=== PATIENT | male | born 1955 | race Caucasian/White ===

== ENCOUNTER 2018-04-06 08:44 | Inpatient (IN) ==
--- NOTE | 2018-03-07 09:36 | PAT Medication Instructions ---
Medication Instructions Date of Service March 07, 2018 Home Medications Durezol 1 dose OPHTHALMIC (EYE) BID adalimumab [Humira] 1 dose SUBCUT UD amlodipine 10 mg PO QAM bisoprolol fumarate 0.5 tab PO QAM canagliflozin [Invokana] 100 mg PO QAM celecoxib 200 mg PO BID metformin2 tab PO BID multivitamin [Multiple Vitamins] 1 tab PO QPM omega 4-xox-yey-fish oil [Fish Oil] 1 cap PO BID omeprazole 20 mg PO QAM potassium gluconate 595 mg PO QAM sitagliptin [Januvia] 50 mg PO QAM timolol 1 drp OPHTHALMIC (EYE) QID valsartan-hydrochlorothiazide 1 tab PO QAM vitamin B complex 1 cap PO QAM warfarin 8 mg PO QPM Per surgeon's instructions celecoxib 200 mg PO BID Check with MD/Surgeon-instructions adalimumab [Humira] 1 dose SUBCUT UD (check with your prescriber) warfarin 8 mg PO QPM (check with your surgeon and prescriber) Hold 2 weeks prior to surgery omega 8-bkg-gla-fish oil [Fish Oil] 1 cap PO BID Hold the morning of surgery canagliflozin [Invokana] 100 mg PO QAM metformin2 tab PO BID potassium gluconate 595 mg PO QAM sitagliptin [Januvia] 50 mg PO QAM valsartan-hydrochlorothiazide 1 tab PO QAM vitamin B complex 1 cap PO QAM Take morning of surgery with a sip of water, OTHERWISE NOTHING TO EAT OR DRINK AFTER MIDNIGHT: Durezol 1 dose OPHTHALMIC (EYE) BID amlodipine 10 mg PO QAM bisoprolol fumarate 0.5 tab PO QAM omeprazole 20 mg PO QAM timolol 1 drp OPHTHALMIC (EYE) QID Take evening before surgery Durezol 1 dose OPHTHALMIC (EYE) BID metformin2 tab PO BID multivitamin [Multiple Vitamins] 1 tab PO QPM timolol 1 drp OPHTHALMIC (EYE) QID Other Notes If you have any questions please call us at [phone] or [phone] or [phone] or [phone]
[2018-03-07 10:02] LABS: Basophils # (auto) 0.05 K/uL (0-0.2); Basophils % (auto) 0.7 %; Eosinophils # (auto) 0.38 K/uL (0-0.5); Eosinophils % (auto) 5.1 %; Hematocrit (blood only) 45.8 % (42-52); Hemoglobin 14.7 g/dL (14.0-18.0); Immature Granulocytes # (auto) 0.02 K/uL (0.00-0.02); Immature Granulocytes % (auto) 0.3 %; Lymphocytes # (auto) 1.83 K/uL (1.2-3.4); Lymphocytes % (auto) 24.6 %; Mean Corpuscular Hgb Conc 32.1 g/dL (32-36); Mean Corpuscular Volume 84.8 fL (80-100); Mean Platelet Volume 11.1 fL (7.4-10.4); Monocytes # (auto) 0.67 K/uL (0.11-0.59); Neutrophils # (auto) 4.48 K/uL (1.4-6.5); Neutrophils % (auto) 60.3 %; Platelet Count 159 K/uL (130-400); RDW Coefficient of Variation 14.8 % (11.5-14.5); RDW Standard Deviation 45.5 fL (36.4-46.3); White Blood Count 7.43 K/uL (4.8-10.8)
--- NOTE | 2018-03-07 10:02 | Anesthesiology Consultation ---
Date of Service March 07, 2018 Assessment & Plan (1) Encounter for pre-operative examination: Chart Review Chart Review: Acceptable Risk for Surgery and Patient seen in Pre Admission Testing Consults Requested none Teaching & Discussion Pre-Anesthesia Teaching/Discussion Notes: Instructed NPO after midnight before surgery, except medications with 15 cc of water. Medication instructions provided according to the PAT guidelines. History Surgery Operation Date: 04/06/18 08:50 Proposed Procedures p Left Revision Total Shoulder Replacement to Reverse Total Shoulder - Neal Reinoso, Height/Weight Height: 5 ft 9 in Weight: 132 kg Allergies Allergy/AdvReac Type Severity Reaction Status Date / Time latex Allergy Mild LOCAL SKIN Verified 02/28/18 09:28 SORES adhesive AdvReac Intermediate OCCASIONALLY Verified 02/28/18 09:28 KILN PACKER PATCHES CAUSE A RASH vancomycin AdvReac Mild CARMEN Verified 02/28/18 09:28 LIKE RASH - GIVE SLOWLY Medications Home Medications Medication Instructions Recorded Confirmed Last Taken Durezol 1 dose OPHTHALMIC (EYE) BID 02/28/18 02/28/18 02/28/18 amlodipine 10 mg PO QAM 02/28/18 02/28/18 02/28/18 bisoprolol fumarate 0.5 tab PO QAM 02/28/18 02/28/18 02/28/18 canagliflozin [Invokana] 100 mg PO QAM 02/28/18 02/28/18 02/28/18 celecoxib 200 mg PO BID 02/28/18 02/28/18 02/28/18 metformin 2 tab PO BID 02/28/18 02/28/18 02/28/18 multivitamin [Multiple Vitamins] 1 tab PO QPM 02/28/18 02/28/18 02/27/18 omega 4-wpo-plq-fish oil [Fish Oil] 1 cap PO BID 02/28/18 02/28/18 02/28/18 omeprazole 20 mg PO QAM 02/28/18 02/28/18 02/28/18 potassium gluconate 595 mg PO QAM 02/28/18 02/28/18 02/28/18 sitagliptin [Januvia] 50 mg PO QAM 02/28/18 02/28/18 02/28/18 timolol 1 drp OPHTHALMIC (EYE) BID 02/28/18 03/07/18 02/28/18 valsartan-hydrochlorothiazide 1 tab PO QAM 02/28/18 02/28/18 02/28/18 vitamin B complex 1 cap PO QAM 02/28/18 02/28/18 02/28/18 warfarin 8 mg PO QPM 02/28/18 02/28/18 02/27/18 Past Medical History Medical History Acid reflux Acute anterior uveitis of left eye UVEITIS AND AUTOIMMUNE PROBLEM LEFT EYE ONLY Atrial fibrillation DX 2008/NO CARDIOVERSION Diabetes Fatty liver Hypertension Osteoarthritis Sleep apnea OXYGEN HS Past Family History Family History Mother Family history of diabetes mellitus Grandfather Family history of diabetes mellitus Grandmother Family history of diabetes mellitus Past Surgical History Surgical History History of arthroplasty of left shoulder History of arthroplasty of right knee History of revision of total knee arthroplasty R Hx of arthroscopy of left knee Hx of arthroscopy of right knee Hx of colonoscopy Hx of right knee surgery TOTAL OF 4 - HX OF INFECTION Hx of shoulder surgery LEFT PIN Hx of tonsillectomy Past Anesthesia History No Hx of Anesthesia Complications (Sensitive to anesthesia, if given what is appropriate to his weight he takes a long time to wake up. 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 Moderately active. Able to climb FOS. Denies CP or SOB. ) Review of Systems Patient denies chest pain, shortness of breath, dyspnea on exertion, reflux ( controlled with medications), cough, wheezing, palpitations. +joint pain Physical Exam Vital Signs BP: 115/71 P: 74 R: 16 T: 97.7 SPO2: 96% on RA ENMT Mouth: + dental caries and + poor dentition Thyromental Distance: > or= 3.5 Finger Breadths (4+) Mallampati Class: I Neck normal visual inspection, trachea midline and + facial hair (advised) Respiratory normal respiratory effort Auscultation: lungs clear to auscultation bilaterally Cardiovascular Rate/Rhythm: regular rate and regular rhythm Heart Sounds: no murmur Vessels: no carotid bruit Psychiatric Orientation: alert and oriented x 3 Testing Electrocardiogram Date: 03/07/18 Findings: + NSR @ (68) Chest X-Ray Date: 03/07/18 Findings: + NAD The heart is mildly enlarged. There is mild right paratracheal fullness, finding unchanged from the prior study and likely secondary to a great vessels shadow. There is no failure. There is no focal pulmonary consolidation. There are no pleural effusions. There is a linear band of atelectatic changes in the right midlung zone. Postsurgical changes involve the left shoulder. Laboratory Results 03/07/18 09:40 03/07/18 09:40 Blood Type A Positive 03/07/18 09:40 Antibody Screen NEGATIVE 03/07/18 09:40 PT 18.6 Seconds (9.0-12.0) H 03/07/18 09:40 INR 1.8 (0.9-1.1) H 03/07/18 09:40 APTT 33.7 Seconds (21.0-31.0) H 03/07/18 09:40
[2018-03-07 10:12] LABS: INR 1.8 (0.9-1.1); Partial Thromboplastin Ratio 1.3; Partial Thromboplastin Time 33.7 Seconds (21.0-31.0); Prothrombin Time 18.6 Seconds (9.0-12.0)
--- NOTE | 2018-03-07 10:45 | XRay Report ---
XR chest Pre-admission PA/Lat CLINICAL HISTORY: Preoperative chest COMPARISON STUDY: 08/26/2015 FINDINGS: The heart is mildly enlarged. There is mild right paratracheal fullness, finding unchanged from the prior study and likely secondary to a great vessels shadow. There is no failure. There is no focal pulmonary consolidation. There are no pleural effusions. There is a linear band of atelectatic changes in the right midlung zone. Postsurgical changes involve the left shoulder. IMPRESSION: No active disease in the chest. Electronically signed by: Janusz Laws M.D. 03/07/2018 10:44 AM
[2018-03-07 10:52] LABS: BUN Creatinine Ratio 17.5 (10-20); Calcium 9.3 mg/dl (8.5-10.1); Creatinine Clr Calc Pharmacy 135.7 ml/min; Est GFR (African American) 113.5; Est GFR (Non-African American) 97.9
--- NOTE | 2018-04-06 06:31 | History & Physical Report ---
Date of Service April 06, 2018 Assessment & Plan (1) Anterior dislocation of left shoulder: We will proceed with a removal of the total shoulder arthroplasty and conversion to a reverse shoulder prosthesis. Postoperatively he will be kept in the hospital for postop medical management. He plans to go to outpatient physical therapy in [place]. 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 He did well for years and never had a redislocation. Unfortunately he developed bad arthritis in the shoulder. I did a left total shoulder arthroplasty on him and was able to elevate the soft tissues off the trans-planted coracoid. I was able to get a good repair of the subscapularis at the time. He initially did well and was happy with his progress. Unfortunately 2 years after the surgery he began having increased pain and weakness of the left shoulder. X-rays in the office demonstrated anterior dislocation of the left shoulder prosthesis. After extensive discussions in the office he elected to proceed with a conversion to a reverse shoulder arthroplasty. Allergies Allergy/AdvReac Type Severity Reaction Status Date / Time latex Allergy Mild LOCAL SKIN Verified 02/28/18 09:28 SORES adhesive AdvReac Intermediate OCCASIONALLY Verified 02/28/18 09:28 EVENTS DIRECTOR PATCHES CAUSE A RASH vancomycin AdvReac Mild CARMEN Verified 02/28/18 09:28 LIKE RASH - GIVE SLOWLY Home Medications Home Medications Medication Instructions Recorded Confirmed Type Durezol 1 dose OPHTHALMIC (EYE) BID 02/28/18 02/28/18 History amlodipine 10 mg PO QAM 02/28/18 02/28/18 History bisoprolol fumarate 0.5 tab PO QAM 02/28/18 02/28/18 History canagliflozin [Invokana] 100 mg PO QAM 02/28/18 02/28/18 History celecoxib 200 mg PO BID 02/28/18 02/28/18 History metformin 2 tab PO BID 02/28/18 02/28/18 History multivitamin [Multiple Vitamins] 1 tab PO QPM 02/28/18 02/28/18 History omega 2-osk-jim-fish oil [Fish Oil] 1 cap PO BID 02/28/18 02/28/18 History omeprazole 20 mg PO QAM 02/28/18 02/28/18 History potassium gluconate 595 mg PO QAM 02/28/18 02/28/18 History sitagliptin [Januvia] 50 mg PO QAM 02/28/18 02/28/18 History timolol 1 drp OPHTHALMIC (EYE) BID 02/28/18 03/07/18 History valsartan-hydrochlorothiazide 1 tab PO QAM 02/28/18 02/28/18 History vitamin B complex 1 cap PO QAM 02/28/18 02/28/18 History warfarin 8 mg PO QPM 02/28/18 02/28/18 History Past Med/Surg History Medical History Acid reflux Acute anterior uveitis of left eye UVEITIS AND AUTOIMMUNE PROBLEM LEFT EYE ONLY Atrial fibrillation DX 2008/NO CARDIOVERSION Diabetes Fatty liver Hypertension Osteoarthritis Sleep apnea OXYGEN HS Surgical History History of arthroplasty of left shoulder History of arthroplasty of right knee History of revision of total knee arthroplasty R Hx of arthroscopy of left knee Hx of arthroscopy of right knee Hx of colonoscopy Hx of right knee surgery TOTAL OF 4 - HX OF INFECTION Hx of shoulder surgery LEFT PIN Hx of tonsillectomy Family History Mother Family history of diabetes mellitus Grandfather Family history of diabetes mellitus Grandmother Family history of diabetes mellitus Social History Current Living Situation: Family Other Information That Helps Us Care for You: No Feels Safe at Home: Yes Smoking Status: Former smoker Tobacco Type: cigarettes Cigarettes per Day: 1 ppd x 7 years Do You Dip or Chew Tobacco: No Smoking End Date: QUIT 30 YRS AGO Hx Alcohol Use: Yes Alcohol type: beer Alcohol Intake Frequency: holidays/ special occasions only Hx Substance Use: No Beliefs That Will Affect Care: None Preferred Language: Yoruba Communication Ability: Effective Residential Monitor Required: No Review of Systems All systems reviewed & are unremarkable except as noted in HPI & below Physical Exam 2 Constitutional: WD/WN, vitals as above Eyes: PERRL, conjunctivae normal, anicteric sclerae ENMT: external ear and nose normal, oropharynx normal Neck: trachea midline, no thyromegaly Respiratory: normal respiratory effort Cardiovascular: RRR, no murmur, no edema Gastrointestinal (Abdomen): normal bowel sounds, soft, nontender, no hepatosplenomegaly Musculoskeletal: Physical examination of the left shoulder reveals decreased range of motion and significant weakness. There is tenderness palpation along the anterior glenohumeral joint line. The right upper extremity is neurovascularly intact. Psychiatric: A+Ox3, euthymic affect Results & Data Diagnostic Findings X-rays of the left shoulder show an anterior dislocation to a left total shoulder arthroplasty. I do not see any signs of loosening of the components and the components appear to be the appropriate size.
[~2018-04-06 08:44] MED LIST: ACETAMINOPHEN 500 MG TAB PO SCH; CEFAZOLIN 2000MG 2,000 MG/15 ML SYR IV SCH; CEFAZOLIN 3,000 MG in DEXTROSE 5% 50 ML IV SCH; FAMOTIDINE 20 MG TAB PO SCH; GABAPENTIN 300 MG x 2 PO SCH; LR 15ML/HR IV SCH; LR 60ML/HR IV SCH; ROPIVACAINE 0.5% 5 MG/ML 30 ML VIAL ONE; ROPIVACAINE 0.5% HCL/PF 150 MG, BUPIVACAINE 0.5% MPF 30 ML, EPINEPHrine 30MG/30ML (OR U... INFIL SCH; TRANEXAMIC ACID 1,000 MG **IV Intra-op IV SCH; TRANEXAMIC ACID 1,000 MG **IV Pre-op IV SCH
[2018-04-06] MEDS ORDERED: MIDAZOLAM HCL 1 MG/ML 2ML VIAL ONE (09:19)
[2018-04-06] MEDS ORDERED: KETAMINE HCL INJ 50 MG/ML 10 ML VIAL ONE (09:20)
[2018-04-06 09:47] LABS: INR 1.2 (0.9-1.1); Partial Thromboplastin Ratio 1.1; Partial Thromboplastin Time 28.5 Seconds (21.0-31.0); Prothrombin Time 11.6 Seconds (9.0-12.0)
--- NOTE | 2018-04-06 10:39 | History & Physical Bridge Note ---
Date of Service April 06, 2018 History & Physical Bridge Note I have examined the patient, reviewed the History & Physical and in the interval since the performance of the History & Physical I have noted the following changes of clinical significance: no changes noted
[2018-04-06] MEDS ORDERED: ORTHO JOINT ANESTHETIC ONE (11:00)
[2018-04-06] MEDS ORDERED: POVIDONE-IODINE OP SOLN 30 ML BTL ONE (11:01)
[2018-04-06] MEDS ORDERED: HYDROmorphone INJ 1 MG/ML SYRINGE IV PRN (12:27)
[2018-04-06] MEDS ORDERED: PROMETHAZINE HCL 12.5 MG in SODIUM CHLORIDE 0.9% 50 ML IV PRN (12:27)
[2018-04-06] MEDS ORDERED: ePHEDrine sulfate 50 MG/ML AMP IV PRN (12:27)
[2018-04-06] MEDS ORDERED: ONDANSETRON INJ 2 MG/ML 2 ML VIAL IV PRN ×2 (12:27→16:04)
[2018-04-06] MEDS ORDERED: FLUMAZENIL 0.1 MG/1 ML 10 ML VIAL IV PRN (12:27)
[2018-04-06] MEDS ORDERED: ATROPINE SULFATE 0.1 MG/ML 5ML SYR IV PRN (12:27)
[2018-04-06] MEDS ORDERED: NALOXONE HCL 0.4 MG/1 ML VIAL/CARP IV PRN ×2 (12:27→16:04)
[2018-04-06] MEDS ORDERED: LABETALOL HCL IV 5 MG/ML 20ML IV PRN (12:27)
[2018-04-06] MEDS ORDERED: ONDANSETRON INJ 2 MG/ML 2 ML VIAL ONE (14:08)
[2018-04-06] MEDS ORDERED: LIDOCAINE HCL 2% 2 ML VIAL/AMP(20MG/ML) INFIL ONE (14:08)
[2018-04-06] MEDS ORDERED: GLYCOPYRROLATE 0.2 MG/ML VIAL ONE (14:08)
[2018-04-06] MEDS ORDERED: SUCCINYLCHOLINE 100MG/5ML SYR ONE (14:08)
[2018-04-06] MEDS ORDERED: ePHEDrine sulfate 50 MG/ML SYR ONE (14:08)
[2018-04-06] MEDS ORDERED: PROPOFOL IV EMULSION 10 MG/ML 20 ML VIAL IV ONE (14:08)
[2018-04-06] MEDS ORDERED: NEOSTIGMINE METHYLSULFATE 5 MG/5 ML SYR ONE (14:08)
[2018-04-06] MEDS ORDERED: ROCURONIUM BROMIDE 10 MG/ML 5 ML VIAL ONE (14:08)
[2018-04-06] MEDS ORDERED: DEXAMETHASONE SOD INJ 4 MG/ML VIAL ONE (14:08)
--- NOTE | 2018-04-06 14:38 | Operative Report ---
Post Operative Report Date of Surgery April 06, 2018 Pre & Post Diagnosis Operation Date: 04/06/18 11:30 Pre-Op Diagnosis: Rotator Cuff Tear S/P Total Shoulder Replacement Post-Op Diagnosis: Rotator Cuff Tear S/P Total Shoulder Replacement Procedure Operation Date: 04/06/18 11:30 Actual Procedures p Left Revision Total Shoulder Replacement to Reverse Total Shoulder(Left) - Neal Reinoso DO Surgeon Neal Reinoso DO Surface Grinder Rufus Novak PAC Estimated Blood Loss 250 Findings Consistent with Post-Op Diagnosis Specimens None Complications none Disposition Disposition: Recovery Room Indications Robbi is a pleasant 62-year-old male who has a history of a [place] procedure to his left shoulder in the 1970s. Unfortunately he went on to develop bad arthritis in the left shoulder. He had very minimal movement. I did a left total shoulder arthroplasty on him in 2015. Initially he did well. Unfortunately he came to my office several months ago with sudden pain and loss of motion of the shoulder. X-rays showed anterior dislocation. After failing a brief course of conservative treatment he elected to undergo a conversion to a reverse shoulder arthroplasty. Description of Procedure Implants used: I removed a size 50 humeral head, a size 11 humeral stem, and a cemented size medium glenoid I used a Biomet Comprehensive reverse total shoulder arthroplasty system with a size 12 press fit mini humeral stem, a standard humeral tray and a +3 retentive humeral bearing, a 28 mm baseplate with a 6.5 mm central screw and superior and inferior locking screws, and a size 41 eccentric glenosphere. The patient arrived at [facility] for the above procedure. There were seen in the preoperative holding area and the operative extremity was identified and signed. They were given a preoperative antibiotic and an interscalene nerve block. They were taken back to the operating room, laid on table in supine position, and put under general anesthesia. They were then put into the beachchair position. The shoulder was then prepped and draped in sterile fashion. A timeout was done and the patient in the operative extremity was properly identified. The old deltopectoral approach was used. Dissection was taken down through the fascia in the deltopectoral interval was identified. The exposure was a little bit difficult because the conjoined tendons had been moved from the prior Ashlyn procedure. The anterior shoulder was exposed. The humeral head was removed. The glenoid was then exposed. Time was spent doing a complete circumferential capsular labral release. The glenoid was removed in piecemeal fashion. A trephine reamer was then used to remove the central boss. A guidepin was placed for a 28 mm standard baseplate in the center of the hole from the boss. A 28 mm baseplate was then reamed. The final baseplate was then impacted into place. A single central screw was placed followed by superior and inferior locking screws. I was able to get excellent purchase of the baseplate. A 41 mm standard eccentric glenoid sphere was then impacted into place. The proximal humerus was then exposed. I was unable to reduce a humeral tray with the already implanted humeral stem. The humeral stem had to be removed. Osteotomes were used to remove the humeral stem. The humeral stem was removed rather easily. Sequential reaming and then sequential broaching up to a size 12 broach was done. A calcar reamer was used to further increase the depth of the size 12 broach. A +3 retentive bearing seem to be the best fit and give the most stability. I was able to put the arm through full range of motion and felt stable. The trials were then removed and the final size 12 mini press-fit stem was then impacted into place. A +3 retentive bearing was then snapped onto the humeral tray and the ring lock mechanism was engaged. The humeral tray was then impacted onto the humeral stem. The shoulder was reduced both through full range of motion felt to be stable. The wound was then irrigated. Hemostasis was obtained. The axillary nerve was palpated. The shoulder was then irrigated with Betadine solution for 3 minutes. The Betadine was removed. The surgical site was dry. The skin was then closed with 2-0 Vicryl 3-0V lock suture and ag. He was then placed in a soft dressing and a regular arm sling. He was then extubated and transferred to [facility]. He was taken to the post anesthesia care unit in stable condition. He tolerated the procedure well. I attest to the content of the Intraoperative Record and any orders documented therein. Any exceptions are noted below.
--- NOTE | 2018-04-06 15:32 | Anesthesiology Progress Note ---
Date of Service April 06, 2018 Anesthesia Post Procedure Vital Signs Vital Signs: Temp Pulse Pulse Resp BP Pulse Ox 04/06/18 15:25 87 18 142/81 H 93 04/06/18 15:15 85 18 115/68 95 04/06/18 15:05 84 16 139/83 92 04/06/18 14:55 36.4 C L 85 20 151/78 H 92 04/06/18 10:04 36.7 C 85 20 133/79 92 Notes Mental Status: alert / awake / arousable Patient Amnestic to Procedure: Yes Nausea / Vomiting: adequately controlled Pain: adequately controlled Airway Patency, RR, SpO2: stable & adequate BP & HR: stable & adequate Hydration State: stable & adequate Anesthetic Complications: no major complications apparent
--- NOTE | 2018-04-06 15:34 | XRay Report ---
XR shoulder LT min 2V routine HISTORY: 62 years-old Male Post shoulder surgery left shoulder total joint arthroplasty. History of degenerative joint disease. COMPARISON: Left shoulder radiographs 01/09/2018 TECHNIQUE: 2 views of the left shoulder FINDINGS: Reverse left shoulder total joint arthroplasty demonstrates satisfactory alignment. Overlying skin st aples are noted along with expected postsurgical soft tissue swelling and deep tissue air. No acute f racture or retained foreign body identified. Heart appears enlarged. Lungs are hypoinflated. Left lung base opacities suggest atelectasis. IMPRESSION: Reverse left shoulder total joint arthroplasty with satisfactory alignment. The above report was generated using voice recognition software. It may contain grammatical, syntax o r spelling errors. Electronically signed by: Giacomo Greenfield M.D. 04/06/2018 3:32 PM
[2018-04-06] MEDS ORDERED: POLYETHYLENE (MIRALAX) 17 GM PACK PO PRN (16:04)
[2018-04-06] MEDS ORDERED: OXYCODONE HCL IR 5 MG TAB (IMMEDIATE RELEASE) PO PRN (16:04)
[2018-04-06] MEDS ORDERED: MAGNESIUM HYDROXIDE SUSP 30 ML UDC PO PRN (16:04)
[2018-04-06] MEDS ORDERED: MoRPHine SULFATE 2 MG/ML CARP IV PRN (16:04)
[2018-04-06] MEDS ORDERED: METOCLOPRAMIDE HCL INJ 5 MG/ML 2 ML VIAL IV PRN (16:04)
[2018-04-06] MEDS ORDERED: BISACODYL 10 MG SUPP PR PRN (16:04)
[2018-04-06] MEDS: POTASSIUM CHLORIDE 10 MEQ in SODIUM CHLORIDE 0.9% 1000ML 1,000 ML IV SCH (16:38)
[2018-04-06] MEDS: ACETAMINOPHEN 500 MG TAB PO SCH ×2 (16:39→22:20)
[2018-04-06] MEDS: KETOROLAC TROMETHAMINE 15 MG/ML VIAL IV SCH ×2 (16:39→22:19)
[2018-04-06] MEDS: CEFAZOLIN 2000MG 2,000 MG/15 ML SYR IV SCH (17:31)
[2018-04-06] MEDS ORDERED: PHARMACY GLYCEMIC MGMT CONSULT PRN (18:48)
[2018-04-06] MEDS ORDERED: GLUCAGON FOR INJ 1 MG VIAL SQ PRN (18:58)
[2018-04-06] MEDS ORDERED: GLUCOSE 40% GEL 15 GM TUBE PO PRN (18:58)
[2018-04-06] MEDS ORDERED: DEXTROSE 50% 50 ML SYRINGE IV PRN (18:58)
[2018-04-06] MEDS ORDERED: GLUCOSE 10 TABS/TUBE PO PRN (18:58)
[2018-04-06] MEDS ORDERED: CARBOHYDRATES FOR HYPOGLYCEMIA PO PRN (18:58)
--- NOTE | 2018-04-06 19:11 | Pharmacy Report ---
Glycemic Control Consultation - Date of Service April 06, 2018 - Scope Scope: Glycemic Pharmacist consulted by Dr Reinoso on 04/06 for glycemic control and to write orders per [facility] inpatient glycemic control protocol - Objective Weight: 128.4 kg Accuchecks BSG (last 24hrs): 04/06/18 04/06/18 04/06/18 09:49 15:02 17:30 POC Glucose 149 H 164 H 155 H - Recent Pertinent Medications Outpatient Anti-diabetic Regimen: * Invokana 100 mg qAM * Metformin ER 1 gm BID * Januvia 50 mg daily * A1c = 7.3 % 09/26/15 Risk Factors for Insulin Resistance: * Steroids: Decadron 4 mg in the periarticular, Decadron 8 mg IV intraop * Recent Surgery: POD 0 s/p shoulder surgery * Diet: type 2 diabetes - Assessment & Plan Assessment & Plan: ASSESSMENT: * 62 y/o male admitted for shoulder surgery today. He has a history of type 2 diabetes, managed on 3 oral agents. Recent outpatient control is unknown as the last A1c available is from 2 years ago. * Pt is maintained on oral antidiabetic agents as an outpatient * Oral agents are not recommended for inpatient use d/t drug interactions, changing PO intake, and difficulty titrating for acute hyper/hypoglycemia. ADA recommends re-initiating outpatient oral agents 1-2 days prior to discharge if/ when appropriate if they were held on admission. * Will hold oral agents for admission and utilize SQ basal bolus insulin regimen which is the recommended regimen for inpatient glycemic control. * Will initiate weight based insulin dosing for insulin michael patient and titrate based on BSG trends. * Dosing will initially be more aggressive b/c of periop steroids PLAN FOR INPATIENT GLYCEMIC CONTROL: * Holding outpatient oral diabetes medications - can resume POD 1 or 2, as long as patient meets criteria * Basal insulin * Lantus 25 units x 1 now (0.2 units/kg) * Further basal dosing tomorrow dependent on BSGs and/or if oral agents can be resumed * Bolus insulin * NovoLog per scale ACHS + 0200 check in case BSGs significantly elevated s/p steroids * Goal Range: Low 110 mg/dL - High 140 mg/dL * Correction Factor: 15 mg/dL/unit * Nutritional / Prandial insulin per carb ratio of 1 unit per 4 grams CHO consumed * A1c w/ AM labs to guide outpatient recommendations * Please note that the plan above was derived based on current level of insulin resistance and hospital stress. These recommendations are appropriate for inpatient admission only. Plan of care upon discharge will need to be reassessed to avoid potential outpatient hypo/hyperglycemia. Thank you.
[2018-04-06] MEDS ORDERED: LANTUS PER UNIT CHARGE SQ ONE (19:15)
[2018-04-06] MEDS: TIMOLOL MALEATE 0.5% OP SOLN 5 ML BTL OP SCH (20:45)
[2018-04-06] MEDS: INSULIN ASPART 100 UNITS/ML 3 ML PEN SC SCH (20:55)
[2018-04-06] MEDS ORDERED: SENNA 8.6 MG TAB PO SCH (21:00)
[2018-04-06] MEDS ORDERED: DOCUSATE SODIUM 100 MG CAP PO SCH (21:00)
[2018-04-06] MEDS ORDERED: MULTIVITAMIN TAB PO SCH (21:00)
[2018-04-06] MEDS ORDERED: WARFARIN SOD 2 MG TAB PO SCH (21:00)
[2018-04-06] MEDS ORDERED: WARFARIN SOD 6 MG TAB PO SCH (21:00)
[2018-04-07] MEDS ORDERED: INSULIN ASPART 100 UNITS/ML 3 ML PEN SC ONE (02:00)
[2018-04-07] MEDS: CEFAZOLIN 2000MG 2,000 MG/15 ML SYR IV SCH (02:28)
[2018-04-07] MEDS: POTASSIUM CHLORIDE 10 MEQ in SODIUM CHLORIDE 0.9% 1000ML 1,000 ML IV SCH (02:29)
[2018-04-07] MEDS: ACETAMINOPHEN 500 MG TAB PO SCH (05:01)
[2018-04-07] MEDS: KETOROLAC TROMETHAMINE 15 MG/ML VIAL IV SCH (05:10)
[2018-04-07 06:09] LABS: Basophils # (auto) 0.02 K/uL (0-0.2); Basophils % (auto) 0.2 %; Eosinophils # (auto) 0.01 K/uL (0-0.5); Eosinophils % (auto) 0.1 %; Hemoglobin 12.7 g/dL (14.0-18.0); Immature Granulocytes # (auto) 0.06 K/uL (0.00-0.02); Immature Granulocytes % (auto) 0.5 %; Lymphocytes # (auto) 1.54 K/uL (1.2-3.4); Lymphocytes % (auto) 11.6 %; Mean Corpuscular Hgb Conc 31.8 g/dL (32-36); Mean Corpuscular Volume 85.8 fL (80-100); Mean Platelet Volume 10.6 fL (7.4-10.4); Neutrophils % (auto) 78.6 %; Platelet Count 182 K/uL (130-400); RDW Coefficient of Variation 14.7 % (11.5-14.5); RDW Standard Deviation 45.7 fL (36.4-46.3); Red Blood Count 4.66 M/uL (4.7-6.1); White Blood Count 13.33 K/uL (4.8-10.8)
[2018-04-07 06:45] LABS: BUN Creatinine Ratio 22.1 (10-20); Creatinine Clr Calc Pharmacy 122.5 ml/min; Est GFR (African American) 109.5; Est GFR (Non-African American) 94.5
[2018-04-07 07:02] LABS: Estimated Average Glucose 166 mg/dl
--- NOTE | 2018-04-07 07:58 | Orthopedic Progress Note ---
Date of Service April 07, 2018 Assessment & Plan (1) Anterior dislocation of left shoulder: Overall he is doing very well. He will be seen by physical therapy today for hand, wrist, elbow, and pendulum exercises. He will be in a sling for total 3 weeks. He can be discharged home today with outpatient physical therapy. He can follow-up with orthopedics in 2 weeks. Present on Admission?: Yes Subjective Robbi was seen and examined at bedside this morning. Overall is doing very well. He does not have too much pain in the left shoulder. He was able to sleep last night and has no complaints. Physical Exam 2 Vital Signs (Past 24 Hours): Last Vital Signs Temp 36.5 C 04/07/18 07:46 Pulse 71 04/07/18 07:46 Resp 18 04/07/18 07:46 BP 156/81 H 04/07/18 07:46 Pulse Ox 92 04/07/18 07:46 Musculoskeletal: On physical examination of the left shoulder, the dressing is clean and dry. He is wearing a sling as instructed. His radial median and ulnar nerves are all checked and intact his wrist. His axillary nerve was not checked yet. Results & Data Laboratory Results H & H 03/07/18 04/07/18 Range/Units 09:40 05:04 Hgb 14.7 12.7 L (14.0-18.0) g/dL Hct 45.8 40.0 L (42-52) % Coagulation 03/07/18 04/06/18 Range/Units 09:40 09:32 INR 1.8 H 1.2 H (0.9-1.1) Diagnostic Findings X-rays postoperatively of the left shoulder show the prosthesis to be in anatomic alignment without any evidence of fracture, dislocation, or loosening.
--- NOTE | 2018-04-07 07:59 | Discharge Summary ---
Date of Service April 07, 2018 Admission HPI Per Admitting Provider Robbi is a pleasant 62-year-old male who initially had a Ashlyn procedure to his left shoulder in the 1970s. He did well for years and never had a redislocation. Unfortunately he developed bad arthritis in the shoulder. I did a left total shoulder arthroplasty on him and was able to elevate the soft tissues off the trans-planted coracoid. I was able to get a good repair of the subscapularis at the time. He initially did well and was happy with his progress. Unfortunately 2 years after the surgery he began having increased pain and weakness of the left shoulder. X-rays in the office demonstrated anterior dislocation of the left shoulder prosthesis. After extensive discussions in the office he elected to proceed with a conversion to a reverse shoulder arthroplasty. Specialty Data Orthopedic H & H 03/07/18 04/07/18 Range/Units 09:40 05:04 Hgb 14.7 12.7 L (14.0-18.0) g/dL Hct 45.8 40.0 L (42-52) % Coagulation 03/07/18 04/06/18 Range/Units 09:40 09:32 INR 1.8 H 1.2 H (0.9-1.1) Discharge Data Consultations 04/06/18 16:04 Consult Case Management - Discharge Planning Routine Procedures Performed Operation Date: 04/06/18 11:30 Actual Procedures p Left Revision Total Shoulder Replacement to Reverse Total Shoulder(Left) - Neal Reinoso DO Hospital Course (1) Anterior dislocation of left shoulder: On April 06, 2018 Robbi arrived at [facility] and underwent a removal of a left total shoulder arthroplasty with conversion to a reverse. Postoperatively he was placed in a sling and discharged to general orthopedic floors. His hospital course was uneventful. On postop day #1 his H& H was stable and his pain was well controlled. He was able to participate well with physical therapy. He was subsequently discharged home with outpatient physical therapy. He will follow-up with orthopedics in 2 weeks. Discharge Instructions Home Medications Medication Instructions Recorded Confirmed Durezol 1 dose OPHTHALMIC (EYE) BID 02/28/18 04/06/18 amlodipine 10 mg PO QAM 02/28/18 04/06/18 bisoprolol fumarate 0.5 tab PO QAM 02/28/18 04/06/18 canagliflozin [Invokana] 100 mg PO QAM 02/28/18 04/06/18 celecoxib 200 mg PO BID 02/28/18 04/06/18 metformin 2 tab PO BID 02/28/18 04/06/18 multivitamin [Multiple Vitamins] 1 tab PO QPM 02/28/18 04/06/18 omega 8-gqi-msz-fish oil [Fish Oil] 1 cap PO BID 02/28/18 04/06/18 omeprazole 20 mg PO QAM 02/28/18 04/06/18 potassium gluconate 595 mg PO QAM 02/28/18 04/06/18 sitagliptin [Januvia] 50 mg PO QAM 02/28/18 04/06/18 timolol 1 drp OPHTHALMIC (EYE) BID 02/28/18 04/06/18 valsartan-hydrochlorothiazide 1 tab PO QAM 02/28/18 04/06/18 vitamin B complex 1 cap PO QAM 02/28/18 04/06/18 warfarin 8 mg PO QPM 02/28/18 04/06/18 Previous Rx's Medication Instructions Recorded oxycodone 5 - 10 mg PO Q4H PRN #40 tab 04/07/18
[2018-04-07] MEDS ORDERED: hydroCHLOROthiazide 25 MG TAB PO SCH (09:00)
[2018-04-07] MEDS ORDERED: PANTOprazole 40 MG TAB PO SCH (09:00)
[2018-04-07] MEDS ORDERED: AMLODIPINE BESYLATE 5 MG TAB PO SCH (09:00)
[2018-04-07] MEDS ORDERED: INSULIN GLARGINE SOLOSTAR 100 UNITS/ML 3 ML PEN SC ONE (09:00)
[2018-04-07] MEDS ORDERED: VALSARTAN 80 MG TAB PO SCH (09:00)
[2018-04-07] MEDS: TIMOLOL MALEATE 0.5% OP SOLN 5 ML BTL OP SCH (09:08)
[2018-04-07] MEDS ORDERED: LANTUS PER UNIT CHARGE SQ ONE (09:15)
[2018-04-07] MEDS: INSULIN ASPART 100 UNITS/ML 3 ML PEN SC SCH (09:31)
--- NOTE | 2018-04-27 19:51 | Anesthesiology Consultation ---
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 Consults Requested none History Surgery Operation Date: 04/06/18 11:30 Proposed Procedures p Left Revision Total Shoulder Replacement to Reverse Total Shoulder - Neal Reinoso DO Operation Date: 04/29/18 07:15 Proposed Procedures p Total Shoulder Arthroplasty Reverse(Left) - Neal Reinoso DO Height/Weight Height: 5 ft 9 in Weight: 128.4 kg Allergies Allergy/AdvReac Type Severity Reaction Status Date / Time latex Allergy Mild LOCAL SKIN Verified 04/06/18 09:54 SORES adhesive AdvReac Intermediate OCCASIONALLY Verified 04/06/18 09:54 BIT GATHERER PATCHES CAUSE A RASH vancomycin AdvReac Mild CARMEN Verified 04/06/18 09:54 LIKE RASH - GIVE SLOWLY Medications Home Medications Medication Instructions Recorded Confirmed Last Taken Durezol 1 dose OPHTHALMIC (EYE) BID 02/28/18 04/06/18 04/06/18 08:00 1 drop amlodipine 10 mg PO QAM 02/28/18 04/06/18 04/06/18 08:00 10 mg bisoprolol fumarate 0.5 tab PO QAM 02/28/18 04/06/18 04/06/18 08:00 0.5mg canagliflozin [Invokana] 100 mg PO QAM 02/28/18 04/06/18 04/05/18 08:00 100 mg celecoxib 200 mg PO BID 02/28/18 04/06/18 04/05/18 08:00 200 mg metformin 2 tab PO BID 02/28/18 04/06/18 04/05/18 08:00 1000 mg multivitamin [Multiple Vitamins] 1 tab PO QPM 02/28/18 04/06/18 04/05/18 08:00 one tab omega 8-dwa-mdt-fish oil [Fish Oil] 1 cap PO BID 02/28/18 04/06/18 03/23/18 omeprazole 20 mg PO QAM 02/28/18 04/06/18 04/05/18 08:00 20 mg potassium gluconate 595 mg PO QAM 02/28/18 04/06/18 04/05/18 08:00 595 mg sitagliptin [Januvia] 50 mg PO QAM 02/28/18 04/06/18 04/05/18 08:00 50 mg timolol 1 drp OPHTHALMIC (EYE) BID 02/28/18 04/06/18 04/05/18 21:00 1 drop valsartan-hydrochlorothiazide 1 tab PO QAM 02/28/18 04/06/18 04/06/18 08:00 1 tab vitamin B complex 1 cap PO QAM 02/28/18 04/06/18 04/05/18 08:00 1 cap warfarin 8 mg PO QPM 02/28/18 04/06/18 04/01/18 oxycodone 5 - 10 mg PO Q4H PRN #40 tab 04/07/18 Unknown Past Medical History Medical History Hypertension Atrial fibrillation DX 2008/NO CARDIOVERSION Sleep apnea OXYGEN HS Acute anterior uveitis of left eye UVEITIS AND AUTOIMMUNE PROBLEM LEFT EYE ONLY Osteoarthritis Acid reflux Fatty liver Diabetes Past Family History Family History Mother Family history of diabetes mellitus Grandfather Family history of diabetes mellitus Grandmother Family history of diabetes mellitus Past Surgical History Surgical History History of arthroplasty of right knee Hx of right knee surgery TOTAL OF 4 - HX OF INFECTION History of revision of total knee arthroplasty R Hx of shoulder surgery LEFT PIN History of arthroplasty of left shoulder Hx of tonsillectomy Hx of colonoscopy Hx of arthroscopy of left knee Hx of arthroscopy of right knee Past Anesthesia History No Hx of Anesthesia Complications and No Family Hx of Anesthesia Complications Occasionally slow to wake up History of PONV No Motion Sickness Screening History of Motion Sickness: No Social History Smoking Status: Former smoker tobacco type: cigarettes Smoking cigarettes per day: 1 ppd x 7 years Do You Dip or Chew Tobacco: No Smoking End Date: QUIT 30 YRS AGO Hx Alcohol Use: Yes Alcohol type: beer alcohol intake frequency: holidays/special occasions only Hx Substance Use: No substance use type: does not use Exercise / Class Metabolic Activity II 4-5 Yardwork/Stairs/Walk up hill 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 Moderately active. Able to climb FOS. Denies CP or SOB. Physical Exam Vital Signs Last Vital Signs Temp 36.5 C 04/07/18 08:18 Pulse 71 04/07/18 08:18 Resp 18 04/07/18 08:18 BP 156/81 H 04/07/18 08:18 Pulse Ox 92 04/07/18 08:18 Testing Electrocardiogram Date: 03/07/18 Findings: + NSR @ (68) Chest X-Ray Date: 03/07/18 Findings: + NAD The heart is mildly enlarged. There is mild right paratracheal fullness, finding unchanged from the prior study and likely secondary to a great vessels shadow. There is no failure. There is no focal pulmonary consolidation. There are no pleural effusions. There is a linear band of atelectatic changes in the right midlung zone. Postsurgical changes involve the left shoulder. Laboratory Results 04/07/18 05:04 04/07/18 05:04 Blood Type A Positive 04/06/18 09:31 Antibody Screen NEGATIVE 04/06/18 09:31 PT 11.6 Seconds (9.0-12.0) 04/06/18 09:32 INR 1.2 (0.9-1.1) H 04/06/18 09:32 APTT 28.5 Seconds (21.0-31.0) 04/06/18 09:32 Hemoglobin A1c 7.4 % (4.5-5.6) H 04/07/18 05:04
[2018-04-29] MEDS ORDERED: ATROPINE SULFATE 0.1 MG/ML 10ML SYR IV PRN (07:17)
[2018-04-29] MEDS ORDERED: ePHEDrine sulfate 50 MG/ML AMP IV PRN (07:17)
[2018-04-29] MEDS ORDERED: fentaNYL citrate 100 MCG/2 ML VIAL IV PRN (07:17)
[2018-04-29] MEDS ORDERED: ONDANSETRON INJ 2 MG/ML 2 ML VIAL IV PRN (07:17)
[2018-04-29] MEDS ORDERED: MoRPHine SULFATE 10 MG/ML CARP/VIAL IV PRN (07:17)
== END 2018-04-07 10:24 | disposition home or self-care (01) | DRG 483 ==
LOC: ASU 08:44 → 3E 14:43
DX: Z79.899 Other long term (current) drug therapy; I48.91 Unspecified atrial fibrillation; H20.9 Unspecified iridocyclitis; M75.102 Unspecified rotator cuff tear or rupture of left shoulder, not specified as traumatic; E11.9 Type 2 diabetes mellitus without complications; I10 Essential (primary) hypertension; Z79.84 Long term (current) use of oral hypoglycemic drugs; Y83.1 Surgical operation with implant of artificial internal device as the cause of abnormal reaction of the patient, or of later complication, without mention of misadventure at the time of the procedure; Z86.69 Personal history of other diseases of the nervous system and sense organs; Z96.612 Presence of left artificial shoulder joint; T84.028A Dislocation of other internal joint prosthesis, initial encounter; Z83.3 Family history of diabetes mellitus; G47.30 Sleep apnea, unspecified; Z79.01 Long term (current) use of anticoagulants; K21.9 Gastro-esophageal reflux disease without esophagitis; Z96.651 Presence of right artificial knee joint; Z87.891 Personal history of nicotine dependence

== ENCOUNTER 2018-09-06 12:14 | Inpatient (IN) ==
--- NOTE | 2018-09-05 08:44 | Anesthesiology Consultation ---
Date of Service September 05, 2018 Assessment & Plan (1) Encounter for pre-operative examination: CHECK BSG AM DOS CHECK PT/INR/PTT AM DOS Chart Review Chart Review: Acceptable Risk for Surgery and Patient NOT seen in Pre Admission Testing Teaching & Discussion Coumadin instructions per prescriber and surgeon. Per surgeon's office, Coumadin being held as of 09/04. Surgeon will give Vitamin K if needed. History Surgery Operation Date: 09/06/18 07:00 Proposed Procedures p Left Shoulder Incision and Drainage with Poly Exchange, - Neal Reinoso DO s Left Reverse Shoulder Replacement - Neal Reinoso DO Height/Weight Height: 5 ft 9 in Weight: 131.7 kg Allergies Allergy/AdvReac Type Severity Reaction Status Date / Time latex Allergy Mild LOCAL SKIN Verified 06/08/18 13:48 SORES adhesive AdvReac Intermediate OCCASIONALLY Verified 06/08/18 13:48 GEOSCIENCE PROFESSOR PATCHES CAUSE A RASH vancomycin AdvReac Mild CARMEN Verified 06/08/18 13:48 LIKE RASH - GIVE SLOWLY Medications Home Medications Medication Instructions Recorded Confirmed Last Taken amlodipine 10 mg PO QAM 02/28/18 06/08/18 04/28/18 bisoprolol fumarate 0.5 tab PO QAM 02/28/18 06/08/18 04/28/18 canagliflozin [Invokana] 100 mg PO QAM 02/28/18 06/08/18 04/28/18 celecoxib 200 mg PO BID 02/28/18 06/08/18 04/28/18 metformin 2 tab PO BID 02/28/18 06/08/18 04/28/18 multivitamin [Multiple Vitamins] 1 tab PO QPM 02/28/18 06/08/18 04/27/18 omega 7-nix-lae-fish oil [Fish Oil] 1 cap PO BID 02/28/18 06/08/18 04/26/18 omeprazole 20 mg PO QAM 02/28/18 06/08/18 04/28/18 potassium gluconate 595 mg PO QAM 02/28/18 06/08/18 04/28/18 sitagliptin [Januvia] 50 mg PO QAM 02/28/18 06/08/18 04/28/18 timolol 1 drp OPHTHALMIC (EYE) BID 02/28/18 06/08/18 04/27/18 valsartan-hydrochlorothiazide 1 tab PO QAM 02/28/18 06/08/18 04/28/18 vitamin B complex 1 cap PO QAM 02/28/18 06/08/18 04/28/18 warfarin 8 mg PO QPM 02/28/18 06/08/18 04/26/18 acetaminophen [Tylenol] 2 tabs PO UD PRN 04/28/18 06/08/18 04/28/18 difluprednate 1 dose OPHTHALMIC (EYE) QID 04/28/18 06/08/18 04/28/18 ketorolac 1 dose OPHTHALMIC (EYE) TID 04/28/18 06/08/18 04/27/18 bacitracin 1 appln TOP BID #14 gm 05/02/18 06/08/18 Unknown Past Medical History Medical History Infection of prosthetic shoulder joint Staphylococcus aureus septicemia Admitted to [facility] 04/28/18 and treated with I+D and ABX. Hypertension (Chronic) Atrial fibrillation DX 2008. ON COUMADIN. Sleep apnea (Chronic) OXYGEN HS Acute anterior uveitis of left eye UVEITIS AND AUTOIMMUNE PROBLEM LEFT EYE ONLY Osteoarthritis Acid reflux Fatty liver (Chronic) Diabetes (Chronic) Most recent A1C 7.4% 03/2018 Past Surgical History Surgical History History of arthroplasty of right knee Hx of right knee surgery TOTAL OF 4 - HX OF INFECTION REQUIRING ABX SPACER History of revision of total knee arthroplasty R Hx of shoulder surgery (Acute) LEFT PIN History of arthroplasty of left shoulder Hx of tonsillectomy Hx of colonoscopy Hx of arthroscopy of left knee Hx of arthroscopy of right knee History of incision and drainage OF SHOULDER SURGICAL WOUND 05/04/18 [facility]. MAC #4, ETT 8.0, GRADE VIEW II. Social History Smoking Status: Former smoker tobacco type: cigarettes Smoking cigarettes per day: 1 ppd x 7 years Hx Alcohol Use: No Alcohol type: beer alcohol intake frequency: holidays/special occasions only Hx Substance Use: No substance use type: does not use Testing Laboratory Results 09/04/18 WBC: 14.28 H/H: 11.2/36.6 PLATELETS: 267 SODIUM: 136 POTASSIUM: 3.9 CHLORIDE: 104 CO2: 27 BUN: 13 CREATININE: 0.90 GLUCOSE: 143 PT: 24.5 PTT: 47.3 INR: 2.6 TYPE AND SCREEN: A+, Antibody negative. *surgeon's office flagged re: elevated WBC count. Electrocardiogram Date: 04/28/18 Findings: + NSR @ (97) Chest X-Ray Date: 04/28/18 1. Cardiomegaly and stable right paratracheal fullness 2. Mild central pulmonary vascular congestion 3. Left basilar airspace opacities, atelectatic versus infectious/inflammatory Done in ED, subsequently admitted for infected L shoulder arthroplasty requiring I+D, + blood cultures; echo done 04/30 WNL. Echocardiogram Date: 04/30/18 EF: 55-60% Normal LV size, mild concentric LVH. No regional wall motion abnormalities. RV mildly dilated, normal LV function. Mild MR. No other significant valvular pathology. Compared with prior study on 10/17/2009, no significant changes.
--- NOTE | 2018-09-06 07:00 | History & Physical Report ---
Date of Service September 06, 2018 Assessment & Plan (1) Infection of prosthetic shoulder joint: We will proceed with an I&D of the shoulder with possible modular component exchange versus possible one stage revision. I am going to see if it seems mostly anterior or if it seems to track deep towards the shoulder. Postoperatively he will be kept in the hospital for IV antibiotics. Infectious disease will be consulted. Present on Admission?: Yes History of Present Illness Chief Complaint: Left shoulder abscess with possible deep infection Primary Care Provider: Tera Culp is a pleasant 62-year-old male who initially underwent a J procedure for anterior instability of his left shoulder about 30 years ago. He then developed advanced arthritis of his shoulder. He underwent a left total shoulder arthroplasty in 2015. Initially he did well but unfortunately his left shoulder dislocated anteriorly again. He then underwent a revision of the left total shoulder arthroplasty to a reverse shoulder arthroplasty in March 2018. He initially did well postoperatively he had very little pain in the shoulder and was making progress at physical therapy. His wound fully healed but then 3 weeks after the procedure he noticed some erythema and redness anteriorly. He underwent an irrigation and debridement with modular component exchange of the left shoulder. He was on IV antibiotics for 6 weeks and then placed on oral antibiotics. He stopped the oral antibiotics about 3 weeks ago. I saw him in the office in July 2018 and he was doing great with his shoulder. He had just stop the antibiotics and was having no pain no complaints. Unfortunately 2 days ago he went to the emergency room in his hometown and there was increased redness and puffiness of the anterior aspect of his left shoulder. It appears to be mostly anterior. It is either an anterior abscess or deep infection of the shoulder. Sed rate CRP white blood cell count were all elevated. He elected to proceed with an open I&D of the left shoulder with possible component exchange. We discussed removing all components in place and cement spacer but he did not want to go through with that. He would rather a washout and lifelong antibiotics if possible. Given the current literature I thought that that was reasonable. We will proceed with an I&D of the shoulder possible modular component exchange versus possible one stage revision. He is currently on Coumadin and he stopped his Coumadin 72 hours before the procedure. His initial INR was 2.6. His PTT levels were low. Hemostasis will be controlled throughout the procedure. Given is medical history, and the fact that the Coumadin had been stopped for 72 hours before the procedure, I do not think that vitamin K will be necessary. He is also a diabetic and he has been informed that he has to take better control of his sugars. His most recent A1c was 7.4. Allergies Allergy/AdvReac Type Severity Reaction Status Date / Time latex Allergy Mild LOCAL SKIN Verified 09/05/18 09:30 SORES vancomycin Allergy Mild CARMEN Verified 09/05/18 09:30 LIKE RASH - GIVE SLOWLY adhesive AdvReac Intermediate OCCASIONALLY Verified 09/05/18 09:30 HAND PAINT MIXER PATCHES CAUSE A RASH Home Medications Home Medications Medication Instructions Recorded Confirmed Type Invokana 100 mg PO QAM 02/28/18 09/05/18 History Januvia 50 mg PO QAM 02/28/18 09/05/18 History amlodipine 5 mg PO QAM 02/28/18 09/05/18 History bisoprolol fumarate 0.5 tab PO BID 02/28/18 09/05/18 History celecoxib 200 mg PO BID 02/28/18 09/05/18 History metformin 2 tab PO BID 02/28/18 09/05/18 History multivitamin [Multiple Vitamins] 1 tab PO QPM 02/28/18 09/05/18 History omega 2-lpk-ggz-fish oil [Fish Oil] 1 cap PO DAILY 02/28/18 09/05/18 History omeprazole 20 mg PO QAM 02/28/18 09/05/18 History potassium gluconate 595 mg PO QAM 02/28/18 09/05/18 History timolol 1 drp OPL BID 02/28/18 09/05/18 History difluprednate [Durezol] 1 drp OPL TID 09/05/18 09/05/18 History irbesartan-hydrochlorothiazide 1 tab PO QAM 09/05/18 09/05/18 History vitamin B complex 1 tab PO DAILY 09/05/18 09/05/18 History warfarin 2 mg PO HS 09/05/18 09/05/18 History warfarin 6 mg PO HS 09/05/18 09/05/18 History Past Med/Surg History Medical History Infection of prosthetic shoulder joint Staphylococcus aureus septicemia Admitted to [facility] 04/28/18 and treated with I+D and ABX. Hypertension (Chronic) Atrial fibrillation DX 2008. ON COUMADIN. Sleep apnea (Chronic) OXYGEN HS Acute anterior uveitis of left eye UVEITIS AND AUTOIMMUNE PROBLEM LEFT EYE ONLY Osteoarthritis Acid reflux Fatty liver (Chronic) Diabetes (Chronic) Most recent A1C 7.4% 03/2018 Restless leg syndrome Surgical History Hx of right knee surgery TOTAL OF 4 - HX OF INFECTION REQUIRING ABX SPACER History of revision of total knee arthroplasty R Hx of shoulder surgery (Acute) LEFT PIN History of arthroplasty of left shoulder Hx of tonsillectomy Hx of colonoscopy History of arthroscopy RT/LEFT KNEE History of cardiac cath 2008/NO STENTS History of esophagogastroduodenoscopy (EGD) History of incision and drainage OF SHOULDER SURGICAL WOUND 05/04/18 [facility]. MAC #4, ETT 8.0, GRADE VIEW II. History of tooth extraction Hx of shoulder surgery LEFT TSA + LEFT REVERSAL TSA Social History Preferred Language: Tuvaluan Communication Ability: Effective Visual Impairment: No Limitations Beliefs That Will Affect Care: None marital status: Current Living Situation: Spouse Feels Safe at Home: Yes Smoking Status: Former smoker Tobacco Type: cigarettes Second Hand Exposure: No Hx Alcohol Use: Yes Alcohol type: beer Hx Substance Use: No Review of Systems All systems reviewed & are unremarkable except as noted in HPI & below Physical Exam Musculoskeletal: Physical examination of the left shoulder, he has slightly decreased range of motion compared to the previous visit most because of the anterior shoulder pain. He has an anterior abscess of his shoulder. I am not sure if it goes deep. It is fluctuant and directly beneath the skin. The area is red and erythematous. He is otherwise neurovascularly intact.
[~2018-09-06 12:14] MED LIST changes: -CEFAZOLIN 2000MG 2,000 MG/15 ML SYR IV SCH; -CEFAZOLIN 3,000 MG in DEXTROSE 5% 50 ML IV SCH; +CEFAZOLIN 3000MG 65 ML IV SCH; -ROPIVACAINE 0.5% 5 MG/ML 30 ML VIAL ONE; -ROPIVACAINE 0.5% HCL/PF 150 MG, BUPIVACAINE 0.5% MPF 30 ML, EPINEPHrine 30MG/30ML (OR U... INFIL SCH
[2018-09-06] MEDS ORDERED: ROCURONIUM BROMIDE 10 MG/ML 5 ML VIAL ONE ×2 (13:22→15:11)
[2018-09-06] MEDS ORDERED: MIDAZOLAM HCL 1 MG/ML 2ML VIAL ONE (13:22)
[2018-09-06] MEDS ORDERED: fentaNYL citrate 100 MCG/2 ML VIAL ONE ×2 (13:22→18:23)
[2018-09-06] MEDS ORDERED: LIDOCAINE 2% 20 MG/ML 5 ML SYR IV ONE (13:22)
[2018-09-06] MEDS ORDERED: PROPOFOL IV EMULSION 10 MG/ML 20 ML VIAL IV ONE (13:22)
[2018-09-06] MEDS ORDERED: ONDANSETRON INJ 2 MG/ML 2 ML VIAL ONE (13:22)
[2018-09-06 13:24] LABS: INR 2.1 (0.9-1.1); Partial Thromboplastin Ratio 1.4; Partial Thromboplastin Time 38.7 Seconds (21.0-31.0); Prothrombin Time 20.3 Seconds (9.0-12.0)
[2018-09-06] MEDS ORDERED: POVIDONE-IODINE OP SOLN 30 ML BTL ONE (14:01)
--- NOTE | 2018-09-06 14:30 | History & Physical Bridge Note ---
Date of Service September 06, 2018 History & Physical Bridge Note I have examined the patient, reviewed the History & Physical and in the interval since the performance of the History & Physical I have noted the following changes of clinical significance: no changes noted
[2018-09-06] MEDS ORDERED: PHENYLEPHRINE 100MCG/ML 5ML SYR ONE ×2 (15:10→17:44)
[2018-09-06] MEDS ORDERED: DAKIN'S SOLN 0.25% HALF STRENGTH 473ML BTL EXT SCH (15:15)
[2018-09-06] MEDS ORDERED: BACITRACIN INJ 50,000 UNIT VIAL ONE (16:27)
[2018-09-06] MEDS ORDERED: PHENYLEPHRINE HCL 10 MG/ML VIAL ONE (17:44)
[2018-09-06] MEDS ORDERED: BUPIVACAINE 0.5 % 5 MG/1 ML MPF 30ML VIAL ONE (17:45)
--- NOTE | 2018-09-06 18:12 | Operative Report ---
Post Operative Report Pre & Post Diagnosis Operation Date: 09/06/18 07:00 Pre-Op Diagnosis: Infection of prosthetic shoulder joint. Post-Op Diagnosis: Infection of prosthetic shoulder joint. Procedure Operation Date: 09/06/18 07:00 Actual Procedures p Left Shoulder Incision and Drainage with removal of hardware(Left) - Neal Reinoso DO s Left Revision Reverse Shoulder Replacement(Left) - Neal Reionso DO Surgeon Neal Reinoso DO Histotechnician Neal Gonzalez PAC Estimated Blood Loss 500 Findings Consistent with Post-Op Diagnosis Specimens Superficial and deep cultures Complications none Disposition Disposition: Recovery Room Indications Robbi is a 62-year-old male who is undergone multiple left shoulder procedures. Most recently I did an I&D and poly-exchange of his left shoulder for a MRSA infection about 4 months ago. He was on the IV antibiotics and did well. Once he stopped the oral antibiotics his infection returned. Please see my history and physical for complete preoperative history. He was admitted to [facility] for an I&D and possible complement exchange of the left shoulder. Description of Procedure On September 06, 2018 Robbi arrived at [facility] for the above procedure. He was seen in the preoperative holding area and the operative extremities identified and signed. He was not given any preoperative antibiotics. He was not given an interscalene nerve block. He was taken back to the operating room and laid on the table in supine position. He was put under general anesthesia. He was then put into the beachchair position. The left shoulder was prepped and draped in sterile fashion. A timeout was done. The patient and the operative extremity was properly identified. This procedure was done in 3 different stages. Stage I: The previous deltopectoral incision was opened up. Soon as I opened up the skin there was a large amount of purulent discharge which came out of the shoulder. This was cultured. This was then irrigated out. And there was a clear path straight down to the prosthesis. At this point I knew I had to do a complement exchange. I decided to do a full stage I revision with removal of all components. This decision was made based on his history and the fact that he has a MRSA infection. Significant time was spent freeing up the shoulder. Adhesions were removed from the subdeltoid space in the anterior compartment. The shoulder was then dislocated. The humeral tray was removed and the glenoid was exposed. The glenosphere was then removed. The screws were removed from the glenoid baseplate and the glenoid baseplate was then removed. The proximal humerus was then exposed. A flexible osteotome was used to free up the humeral stem. The humeral stem was then easily removed. Stage II: The left shoulder was then irrigated and debrided according to the protocol set forth by Dr. Durán. An aggressive debridement was done of all surrounding soft tissues. I was sure to remove any tissues that appear to be infectious. Once that was done the wound was irrigated with Dakin solution. After 3 minutes the solution was removed and the joint was vigorously scrubbed with a Betadine scrub brush. The joint was then irrigated with 3 L normal saline solution. The joint was then irrigated with a dilute Betadine solution and soaked for 3 minutes. The joint was then vigorously scrubbed with Betadine scrub brush. The joint was once again irrigated with 3 L normal saline solution. The joint was then irrigated with 3 L of normal saline solution with bacitracin. All dirty instruments were removed. All drapes were changed and all gowns and gloves were changed. Stage III: Once a new sterile field was set up attention was turned to reimplantation of the prosthesis. The glenoid was freshened up with a 28 mm standard baseplate reamer. A 28 mm baseplate was then impacted into place. A single central screw was placed followed by superior and inferior locking screws. A 41 mm eccentric glenosphere was then impacted into place. The proximal humerus was then exposed. A single size 12 broach was used to open up the canal. The final size 12 humeral stem was then impacted into place. Several different humeral trays were trialed and a +3 retentive with a 5 mm spacer seem to be the best fit. A +3 retentive humeral bearing was then snapped into a +5 humeral tray. The ring lock mechanism was engaged. The humeral tray was then impacted onto the humeral stem. The shoulder was then reduced. The shoulder was brought through full range of motion felt to be stable. The wound was once again irrigated. Hemostasis was controlled. The deep layer was closed with a #1 PDS suture. Skin was closed with 3-0 Vicryl 3 oh VueLock suture and ag. 2 drains were placed. A soft dressing was placed in a left arm sling. He was then extubated and transferred to a [facility]. He was taken to the postanesthesia care unit in stable condition. He tolerated the procedure well. I attest to the content of the Intraoperative Record and any orders documented therein. Any exceptions are noted below.
[2018-09-06] MEDS ORDERED: ONDANSETRON INJ 2 MG/ML 2 ML VIAL IV PRN ×2 (18:24→19:43)
[2018-09-06] MEDS ORDERED: PROMETHAZINE HCL 6.25 MG in SODIUM CHLORIDE 0.9% 50 ML IV PRN (18:24)
[2018-09-06] MEDS ORDERED: HYDROmorphone INJ 2 MG/ML SYR/VIAL IV PRN (18:24)
[2018-09-06] MEDS ORDERED: ATROPINE SULFATE 0.1 MG/ML 10ML SYR IV PRN (18:24)
[2018-09-06] MEDS ORDERED: ePHEDrine sulfate 50 MG/ML AMP IV PRN (18:24)
[2018-09-06] MEDS: fentaNYL citrate 100 MCG/2 ML VIAL IV PRN ×2 (18:29→18:37)
--- NOTE | 2018-09-06 19:02 | Anesthesiology Progress Note ---
Date of Service September 06, 2018 Anesthesia Post Procedure Vital Signs Vital Signs: Temp Pulse Pulse Resp BP Pulse Ox 09/06/18 18:50 36.2 C L 79 19 100/54 L 100 09/06/18 18:40 79 19 96/55 L 100 09/06/18 18:30 80 19 89/57 L 100 09/06/18 18:20 79 18 92/56 L 98 09/06/18 18:10 37.6 C H 80 16 93/60 L 98 09/06/18 12:45 36.6 C 87 20 136/81 95 Pain Intensity Left Shoulder: Pain Intensity: 0 Transfer of Care Handoff Completed per policy Notes Mental Status: alert / awake / arousable Patient Amnestic to Procedure: Yes Nausea / Vomiting: adequately controlled Pain: adequately controlled Airway Patency, RR, SpO2: stable & adequate BP & HR: stable & adequate Hydration State: stable & adequate Anesthetic Complications: no major complications apparent
[2018-09-06] MEDS ORDERED: METOCLOPRAMIDE HCL INJ 5 MG/ML 2 ML VIAL IV PRN (19:43)
[2018-09-06] MEDS ORDERED: NALOXONE HCL 0.4 MG/1 ML VIAL/CARP IV PRN (19:43)
[2018-09-06] MEDS ORDERED: DAPTOmycin 500 MG VIAL IV SCH (19:43)
[2018-09-06] MEDS ORDERED: OXYCODONE HCL IR 5 MG TAB (IMMEDIATE RELEASE) PO PRN (19:43)
[2018-09-06] MEDS ORDERED: HYDROmorphone INJ 0.5 MG/0.5 ML SYR IV PRN (19:43)
[2018-09-06] MEDS ORDERED: BISACODYL 10 MG SUPP PR PRN (19:43)
[2018-09-06] MEDS ORDERED: MAGNESIUM HYDROXIDE SUSP 30 ML UDC PO PRN (19:43)
[2018-09-06] MEDS ORDERED: PHARMACY GLYCEMIC MGMT CONSULT PRN (20:22)
--- NOTE | 2018-09-06 20:23 | XRay Report ---
XR shoulder LT min 2V routine CLINICAL HISTORY: Post shoulder surgery postoperative COMPARISON: None. DISCUSSION: Anatomic alignment post total left shoulder arthroplasty. Good contact between prosthetic and underlying bone. Expected soft tissue postoperative change IMPRESSION: Anatomic alignment post total left shoulder arthroplasty. The above report was generated using voice recognition software. It may contain grammatical, syntax or spelling errors. Electronically signed by: Josef Medrano M.D. 09/06/2018 8:22 PM
[2018-09-06] MEDS: SODIUM CHLORIDE 0.9% 1000ML 1,000 ML IV SCH (20:30)
[2018-09-06] MEDS ORDERED: INSULIN GLARGINE SOLOSTAR 100 UNITS/ML 3 ML PEN SC STA (20:36)
[2018-09-06] MEDS ORDERED: MULTIVITAMIN TAB PO SCH (21:00)
[2018-09-06] MEDS ORDERED: DAPTOmycin 550 MG in SYRINGE 0 ML IV SCH (21:00)
[2018-09-06] MEDS: INSULIN ASPART 100 UNITS/ML 3 ML PEN SC SCH (21:15)
[2018-09-06] MEDS: KETOROLAC TROMETHAMINE 15 MG/ML VIAL IV SCH (21:17)
[2018-09-06] MEDS: ACETAMINOPHEN 500 MG TAB PO SCH (21:24)
[2018-09-06] MEDS: SENNA 8.6 MG TAB PO SCH (21:24)
[2018-09-06] MEDS: DOCUSATE SODIUM 100 MG CAP PO SCH (21:25)
[2018-09-06] MEDS: rifAMPin 600 MG in DEXTROSE 5% 500 ML IV SCH (21:25)
[2018-09-06] MEDS: TIMOLOL MALEATE 0.5% OP SOLN 5 ML BTL OPL SCH (21:26)
--- NOTE | 2018-09-07 01:34 | Consultation ---
Date of Consultation September 07, 2018 Assessment & Plan (1) Infection of total joint prosthesis: 62 y/o M morbidly obese, DM II, CAD, HTN, HLD, AF - Coumadin, SHIN, RLS, prior infection of prosthetic knee joint. Presented with infection of a prosthetic L shoulder. Second such infection this year. Infection 04/2018 proved + for MRSA. The pt is recovering well in the post-op period. He denies CP, SOB, nausea, vomiting, fevers or excessive pain at the surgical site. 1) Prosthetic joint infection - post I & D and revision - he is appropriately on Cubicin. Additional management per orthopedics. 2) AF - Resume Coumadin when possible. Would bridge with Heparin as his weight may preclude use of Lovenox. 3) CAD - No evidence of ACS - he is not currently taking any related meds - presumably he is statin-intolerant 4) DM II - sliding scale 5) HTN - cont Norvasc - can resume ARB and HCTZ provided AM labs are WNL and BP is stable 6) SHIN - CPAP Total time for this consult including review of labs, meds, imaging, records - discussio with pt and review of ortho notes - 37 min History of Present Illness Requesting Physician: Kemar Reason for Consultation: Medical management Attending Physician: Neal Reinoso, DO History of Present Illness 62 y/o M morbidly obese, DM II, CAD, HTN, HLD, AF - Coumadin, SHIN, RLS, prior infection of prosthetic knee joint. Presented with infection of a prosthetic L shoulder. Second such infection this year. Infection 04/2018 proved + for MRSA. The pt is recovering well in the post-op period. He denies CP, SOB, nausea, vomiting, fevers or excessive pain at the surgical site. PMH: 1) DM II 2) Morbidly obese 3) CAD - stents 4) AF - Coumadin 5) Fatty liver 6) HTN 7) HLD 8) GERD 9) Multiple joint infections 10) Uveitis Surgical: 1) R TKR - required removal of hardware and revision due to infection 2) L reverse total shoulder - two revisions due to MRSA infection Social: Denies a history of drinking or smoking Family: Parents owing to heart disease Allergies Allergy/AdvReac Type Severity Reaction Status Date / Time latex Allergy Mild LOCAL SKIN Verified 09/06/18 12:41 SORES vancomycin Allergy Mild CARMEN Verified 09/06/18 12:41 LIKE RASH - GIVE SLOWLY adhesive AdvReac Intermediate OCCASIONALLY Verified 09/06/18 12:41 TRAINING AND QUALITY MANAGER PATCHES CAUSE A RASH Home Medications Home Medications Medication Instructions Recorded Confirmed Type Invokana 100 mg PO QAM 02/28/18 09/06/18 History Januvia 50 mg PO QAM 02/28/18 09/06/18 History amlodipine 5 mg PO QAM 02/28/18 09/06/18 History bisoprolol fumarate 0.5 tab PO BID 02/28/18 09/06/18 History celecoxib 200 mg PO BID 02/28/18 09/06/18 History metformin 2 tab PO BID 02/28/18 09/06/18 History multivitamin [Multiple Vitamins] 1 tab PO QPM 02/28/18 09/06/18 History omega 9-niu-zlc-fish oil [Fish Oil] 1 cap PO DAILY 02/28/18 09/06/18 History omeprazole 20 mg PO QAM 02/28/18 09/06/18 History potassium gluconate 595 mg PO QAM 02/28/18 09/06/18 History timolol 1 drp OPL BID 02/28/18 09/06/18 History difluprednate [Durezol] 1 drp OPL TID 09/05/18 09/06/18 History irbesartan-hydrochlorothiazide 1 tab PO QAM 09/05/18 09/06/18 History vitamin B complex 1 tab PO DAILY 09/05/18 09/06/18 History warfarin 2 mg PO HS 09/05/18 09/06/18 History warfarin 6 mg PO HS 09/05/18 09/06/18 History Patient History Social History Preferred Language: Malian Communication Ability: Effective Visual Impairment: No Limitations Pipe Welder Required: No Beliefs That Will Affect Care: None marital status: Current Living Situation: Spouse Other Information That Helps Us Care for You: No Feels Safe at Home: Yes Safety Concerns: Feels Safe At This Time Smoking Status: Former smoker Tobacco Type: cigarettes Do You Dip or Chew Tobacco: No Smoking End Date: QUIT 30 YEARS AGO Second Hand Exposure: No Tobacco Cessation Education Requested by Patient: No Hx Alcohol Use: Yes Alcohol type: beer Hx Substance Use: No Review of Systems Review of Systems: Gen: Denies fevers, night sweats, rigors, fatigue, malaise, weight loss/gain ENT: Denies congestion, throat pain, hearing loss Eyes: Denies acute visual changes CV: Denies CP, palpitations Pulmonary: Denies SOB, cough, wheezing GI: Denies N/V, diarrhea, constipation Neuro: Denies acute or unilateral weakness, acute gait impairment, headache or acute visual changes Musculoskeletal: He does not currently have any pain at the surgical site Endocrine: Denies polydipsia, polyuria Skin: Denies acute rashes or ulcers Physical Exam Physical Exam: General: AAO x 3, no distress ENT: No erythema or exudates, no thrush Eyes: GERALDINE, EOMI Head and neck: Normocephalic, atraumatic, No JVD, neck is supple. Chest/heart: Nontender, S1,2, RRR, no murmurs, no gallops Lungs: CTAB, no wheezing or crackles Abdomen: Nontender, nondistended, BS+ Neuro: AAO x 3, speech is clear, no unilateral weakness or loss of sensation, coordination intact Musculoskeletal: L shoulder is bandaged, imobilzed - distal pulses are +_ Skin: No acute rashes or ulcers Extremities: No clubbing, cyanosis, edema Results & Data Vital Signs (Past 12 Hours) Vital Signs Temp Pulse Pulse Resp BP Pulse Ox 09/06/18 23:28 98.6 F 88 16 99/63 L 94 09/06/18 23:08 97.7 F 88 16 112/69 94 09/06/18 21:34 98.1 F 88 18 104/63 95 09/06/18 20:35 97.7 F 88 16 105/67 98 09/06/18 19:55 98.2 F 82 17 97/65 L 96 09/06/18 19:20 99.0 F 82 16 97/60 L 95 09/06/18 19:05 80 18 98/54 L 95 09/06/18 18:50 97.2 F L 79 19 100/54 L 100 09/06/18 18:40 79 19 96/55 L 100 09/06/18 18:30 80 19 89/57 L 100 09/06/18 18:20 79 18 92/56 L 98 09/06/18 18:10 99.7 F H 80 16 93/60 L 98
[2018-09-07] MEDS: KETOROLAC TROMETHAMINE 15 MG/ML VIAL IV SCH ×4 (03:09→21:11)
[2018-09-07] MEDS: ACETAMINOPHEN 500 MG TAB PO SCH ×3 (06:08→21:25)
[2018-09-07] MEDS: SODIUM CHLORIDE 0.9% 1000ML 1,000 ML IV SCH (06:41)
[2018-09-07 08:19] LABS: Basophils # (auto) 0.04 K/uL (0-0.2); Basophils % (auto) 0.3 %; Eosinophils # (auto) 0.17 K/uL (0-0.5); Eosinophils % (auto) 1.5 %; Hematocrit (blood only) 29.8 % (42-52); Hemoglobin 8.9 g/dL (14.0-18.0); Immature Granulocytes # (auto) 0.07 K/uL (0.00-0.02); Immature Granulocytes % (auto) 0.6 %; Lymphocytes # (auto) 1.33 K/uL (1.2-3.4); Lymphocytes % (auto) 11.4 %; Mean Corpuscular Hgb Conc 29.9 g/dL (32-36); Mean Corpuscular Volume 73.9 fL (80-100); Mean Platelet Volume 9.5 fL (7.4-10.4); Monocytes # (auto) 1.06 K/uL (0.11-0.59); Monocytes % (auto) 9.1 %; Neutrophils % (auto) 77.1 %; Platelet Count 237 K/uL (130-400); RDW Coefficient of Variation 16.5 % (11.5-14.5); RDW Standard Deviation 45.2 fL (36.4-46.3); Red Blood Count 4.03 M/uL (4.7-6.1); White Blood Count 11.67 K/uL (4.8-10.8)
[2018-09-07 08:40] LABS: Microcytosis Present
[2018-09-07 08:52] LABS: BUN Creatinine Ratio 21.3 (10-20); Calcium 7.9 mg/dl (8.5-10.1); Creatinine Clr Calc Pharmacy 118.2 ml/min; Est GFR (African American) 108.5; Est GFR (Non-African American) 93.6; Potassium 3.8 mmol/L (3.5-5.1)
[2018-09-07] MEDS: MULTIVITAMIN TAB PO SCH (08:55)
[2018-09-07] MEDS: DOCUSATE SODIUM 100 MG CAP PO SCH ×2 (08:55→21:16)
[2018-09-07] MEDS: TIMOLOL MALEATE 0.5% OP SOLN 5 ML BTL OPL SCH ×2 (08:55→21:16)
[2018-09-07] MEDS: IRBESARTAN 150 MG TAB PO SCH (08:55)
[2018-09-07] MEDS: VITAMIN B COMPLEX TAB PO SCH (08:55)
[2018-09-07] MEDS: AMLODIPINE BESYLATE 5 MG TAB PO SCH (08:55)
[2018-09-07] MEDS: PANTOprazole 40 MG TAB PO SCH (08:55)
[2018-09-07] MEDS: hydroCHLOROthiazide 25 MG TAB PO SCH (08:56)
[2018-09-07] MEDS: INSULIN ASPART 100 UNITS/ML 3 ML PEN SC SCH ×4 (08:57→21:08)
[2018-09-07] MEDS ORDERED: NON-FORMULARY MEDICATION (Potassium Gluconate 595 MG) PO SCH (09:00)
[2018-09-07 09:05] LABS: Estimated Average Glucose 177 mg/dl; Hemoglobin A1C 7.8 % (4.5-5.6)
[2018-09-07] MEDS: rifAMPin 600 MG in DEXTROSE 5% 500 ML IV SCH ×2 (09:14→21:15)
--- NOTE | 2018-09-07 09:40 | Anesthesiology Progress Note ---
Date of Service September 07, 2018 Anesthesia Post Procedure Vital Signs Vital Signs: Temp Pulse Pulse Pulse Resp BP Pulse Ox 09/07/18 08:54 104/63 09/07/18 07:35 36.8 C 84 20 92/58 L 92 09/07/18 03:37 37.2 C 82 16 104/67 96 09/06/18 23:28 37.0 C 88 16 99/63 L 94 09/06/18 23:08 36.5 C 88 16 112/69 94 09/06/18 21:34 36.7 C 88 18 104/63 95 09/06/18 20:35 36.5 C 88 16 105/67 98 09/06/18 19:55 36.8 C 82 17 97/65 L 96 09/06/18 19:20 37.2 C 82 16 97/60 L 95 09/06/18 19:05 80 18 98/54 L 95 09/06/18 18:50 36.2 C L 79 19 100/54 L 100 09/06/18 18:40 79 19 96/55 L 100 09/06/18 18:30 80 19 89/57 L 100 09/06/18 18:20 79 18 92/56 L 98 09/06/18 18:10 37.6 C H 80 16 93/60 L 98 09/06/18 12:45 36.6 C 87 20 136/81 95 Pain Intensity Left Shoulder: Pain Intensity: 1 Notes Mental Status: alert / awake / arousable Patient Amnestic to Procedure: Yes Nausea / Vomiting: adequately controlled Pain: adequately controlled Airway Patency, RR, SpO2: stable & adequate BP & HR: stable & adequate Hydration State: stable & adequate Anesthetic Complications: no major complications apparent
[2018-09-07] MEDS ORDERED: INSULIN GLARGINE SOLOSTAR 100 UNITS/ML 3 ML PEN SC STA (09:56)
--- NOTE | 2018-09-07 10:10 | Pharmacy Report ---
Glycemic Control Consultation - Date of Service September 07, 2018 - Scope Scope: Glycemic Pharmacist consulted by Dr Reinoso on 09/06/18 for glycemic control and to write orders per [facility] inpatient glycemic control protocol - Objective Weight: 125.6 kg Accuchecks BSG (last 24hrs): 09/06/18 09/06/18 09/06/18 12:41 18:14 19:53 Glucose POC Glucose 127 H 161 H 199 H 09/07/18 09/07/18 08:06 08:17 Glucose 141 H POC Glucose 144 H Laboratory Data (last 24hrs): 09/07/18 08:06 Potassium 3.8 Carbon Dioxide 25 Anion Gap 6.0 Creatinine 0.86 Est Cr Clr Drug Dosing 118.2 HbA1c: 7.8 % (4.5-5.6) H 09/07/18 08:06 - Recent Pertinent Medications Outpatient Anti-diabetic Regimen: * Invokana, Metformin, Januvia * A1c = 7.8 % 09/07/18 - Assessment & Plan Assessment & Plan: ASSESSMENT: * Mr. Bond is a 62yo M unknown to the pharmacy glycemic service. He is maintained on PO anti-diabetic medications as an outpt. A1C of 7.8% is likely a target a1c for this gentleman based on age and extensive PMHx. His PO intake remains consistent. On Dapto + Rifampin per ID recs. PLAN FOR INPATIENT GLYCEMIC CONTROL: * Holding outpatient oral diabetes medications * Basal insulin * Lantus 20 units given yesterday evening and 20 units to be given this morning. SQ BID scale set to start this evening, see MAR for further details. * Bolus insulin * NovoLog per scale ACHS or Q6hrs while NPO * Goal Range: Low 110 mg/dL - High 140 mg/dL * Correction Factor: 20 mg/dL/unit * Nutritional / Prandial insulin per carb ratio of 1 unit per 6 grams CHO consumed Discharge Recs: * Given Mr. Bond's CV hx, could consider d/c'ing Januvia (lack of A1C lowering effect) and adding GLP-1 with proven CV benefit: Victoza daily or Ozempic weekly * Invokana appropriate: renal fxn OK and no h/o UTIs * Metformin appropriate * ASCVD score >7.5% however he is intolerant to statins. Newest lipid guidelines support the use of PCSK9 inhibitors, could consider one of these agents if insurance allows * Please note that the plan above was derived based on current level of insulin resistance and hospital stress. These recommendations are appropriate for inpatient admission only. Plan of care upon discharge will need to be reassessed to avoid potential outpatient hypo/hyperglycemia. Thank you.
--- NOTE | 2018-09-07 10:28 | Infectious Disease Consult ---
Date of Consultation September 07, 2018 Assessment & Plan (1) Infection of total joint prosthesis: will continue dapto. will not plan on intermediate rifampin due to DDI with coumadin. will need min 6 weeks IV abx. he is agreeable. will then likely need lifelong suppression - he agrees. He would like to further discuss other suppressive options as he did not tolerate doxy well, will discuss after cultures are finalized and we are ready to transition. I have no contraindication to d/c when otherwise stable. He and his were informed that cultures will likely not be finalized until Monday or Monday but gpc on gram stain and h/o MRSA make likelihood of current infection being MRSA as well. He will plan on d/c home on Dapto with weekly cbc, cmp, cpk, esr. He will follow with ID post d/c. If he should grow something other than MRSA he will be contacted. He is agreeable to this plan. He will need picc line. He [facility] April and states he is comfortable with administration, picc care, etc. History of Present Illness Attending Physician: Neal Reinoso DO pt admitted due to recurrent shoulder infection. He was last seen in office in July, he was doing quite well at that time and was having what appeared to be a photosensitivity reaction with doxy. His labs were normal and his wound was healed, due to this his suppressive abx were stopped, he had previously completed several weeks of IV dapto at home for MRSA infection on his shoulder. He was doing well until last weekend when he began to have some pain in joint, denies trauma. This continued to worsened and he went to his local ER on Monday, I spoke with ER physician at that time and an acute ID visit was made. ER stated that he had slight leukocytosis and shoulder was warm and red. A decision was made to have the patient f/u with his surgeon for possible aspiration. He discussed with surgery and a plan was made to admit and undergo washout vs spacer. Pt opted with exchange and wash out, this was done yesterday, significant purulent drainage tracking to joint was found, cultures obtained, pending, gpc noted on gram stain. Pt states that wound was beginning to open yesterday [employer] and was seeping yellow fluid. Denies f/c at home, no abd pain, no cp, sob. no pain today on exam. OOB to chair, present. He was placed back on Dapto and IV rifampin added. wbc on admission was 11, ESR >90 and CRP 16. creat 0.9. Pt states he would like to go home tomorrow. surgical drains in place. tmax 37.6 x 1, currently afebrile. Allergies Allergy/AdvReac Type Severity Reaction Status Date / Time latex Allergy Mild LOCAL SKIN Verified 09/06/18 12:41 SORES vancomycin Allergy Mild CARMEN Verified 09/06/18 12:41 LIKE RASH - GIVE SLOWLY adhesive AdvReac Intermediate OCCASIONALLY Verified 09/06/18 12:41 PAN PULLER PATCHES CAUSE A RASH Home Medications Home Medications Medication Instructions Recorded Confirmed Type Invokana 100 mg PO QAM 02/28/18 09/06/18 History Januvia 50 mg PO QAM 02/28/18 09/06/18 History amlodipine 5 mg PO QAM 02/28/18 09/06/18 History bisoprolol fumarate 0.5 tab PO BID 02/28/18 09/06/18 History celecoxib 200 mg PO BID 02/28/18 09/06/18 History metformin 2 tab PO BID 02/28/18 09/06/18 History multivitamin [Multiple Vitamins] 1 tab PO QPM 02/28/18 09/06/18 History omega 3-zpg-rvy-fish oil [Fish Oil] 1 cap PO DAILY 02/28/18 09/06/18 History omeprazole 20 mg PO QAM 02/28/18 09/06/18 History potassium gluconate 595 mg PO QAM 02/28/18 09/06/18 History timolol 1 drp OPL BID 02/28/18 09/06/18 History difluprednate [Durezol] 1 drp OPL TID 09/05/18 09/06/18 History irbesartan-hydrochlorothiazide 1 tab PO QAM 09/05/18 09/06/18 History vitamin B complex 1 tab PO DAILY 09/05/18 09/06/18 History warfarin 2 mg PO HS 09/05/18 09/06/18 History warfarin 6 mg PO HS 09/05/18 09/06/18 History Patient History Medical History Infection of prosthetic shoulder joint Staphylococcus aureus septicemia Admitted to [facility] 04/28/18 and treated with I+D and ABX. Hypertension (Chronic) Atrial fibrillation DX 2008. ON COUMADIN. Sleep apnea (Chronic) OXYGEN HS Acute anterior uveitis of left eye UVEITIS AND AUTOIMMUNE PROBLEM LEFT EYE ONLY Osteoarthritis Acid reflux Fatty liver (Chronic) Diabetes (Chronic) Most recent A1C 7.4% 03/2018 Restless leg syndrome Surgical History Hx of right knee surgery TOTAL OF 4 - HX OF INFECTION REQUIRING ABX SPACER History of revision of total knee arthroplasty R Hx of shoulder surgery (Acute) LEFT PIN History of arthroplasty of left shoulder Hx of tonsillectomy Hx of colonoscopy History of arthroscopy RT/LEFT KNEE History of cardiac cath 2008/NO STENTS History of esophagogastroduodenoscopy (EGD) History of incision and drainage OF SHOULDER SURGICAL WOUND 05/04/18 [facility]. MAC #4, ETT 8.0, GRADE VIEW II. History of tooth extraction Hx of shoulder surgery LEFT TSA + LEFT REVERSAL TSA Family History Mother Family history of diabetes mellitus Grandfather Family history of diabetes mellitus Grandmother Family history of diabetes mellitus Social History Preferred Language: Khmer Communication Ability: Effective Visual Impairment: No Limitations Potato Seed Cutter Required: No Beliefs That Will Affect Care: None marital status: Current Living Situation: Spouse Other Information That Helps Us Care for You: No Feels Safe at Home: Yes Safety Concerns: Feels Safe At This Time Smoking Status: Former smoker Tobacco Type: cigarettes Do You Dip or Chew Tobacco: No Smoking End Date: QUIT 30 YEARS AGO Second Hand Exposure: No Tobacco Cessation Education Requested by Patient: No Hx Alcohol Use: Yes Alcohol type: beer Hx Substance Use: No Review of Systems Review of Systems: All systems reviewed & are unremarkable except as noted in HPI & below Physical Exam Constitutional: WD/WN, vitals as above Eyes: PERRL, conjunctivae normal, anicteric sclerae ENMT: external ear and nose normal, oropharynx normal Neck: normal visual inspection Respiratory: normal respiratory effort, lungs clear to auscultation Cardiovascular: RRR, no murmur, no edema Gastrointestinal (Abdomen): normal bowel sounds, soft, nontender, no hepatosplenomegaly Musculoskeletal: no cyanosis or clubbing, extremities motor strength 5/5 Skin: no rashes, warm and dry surgical dressing c/d/i Psychiatric: A+Ox3, euthymic affect Results & Data Vital Signs (Past 12 Hours) Vital Signs Temp Pulse Resp BP Pulse Ox 09/07/18 08:54 104/63 09/07/18 07:35 36.8 C 84 20 92/58 L 92 09/07/18 03:37 37.2 C 82 16 104/67 96 09/06/18 23:28 37.0 C 88 16 99/63 L 94 09/06/18 23:08 36.5 C 88 16 112/69 94 Laboratory Results Microbiology 09/06/18 15:25 Shoulder,Left Gram Stain - Final 09/06/18 15:27 Shoulder,Left Gram Stain - Final
--- NOTE | 2018-09-07 10:58 | Hospitalist Progress Note ---
Date of Service September 07, 2018 Assessment & Plan (1) Infection of total joint prosthesis: left shoulder s/p I & D and revision, POD #1. suspected to be due to MRSA. IV daptomycin x 6 weeks preferred, but having issues with insurance and daily copay (>$200/day??). Spoke with Dr Bach - will change to IV vancomcyin. He has h/o "red man syndrome" - with vancomycin order I asked for slowest rate possible. Will also give benadryl prior to infusions. Follow cultures. Resume coumadin this evening. Recheck INR am. Has microcytosis on cbc - check Fe studies am. PICC consent obtained - PICC order placed. Subjective pt feeling well today no dyspnea, cp, abd pain, nausea, emesis anxious to get home left shoulder w/ mild pain Review of Systems Constitutional: no fever and no chills Respiratory: no dyspnea Cardiovascular: no chest pain Physical Exam Constitutional: well developed, well nourished and + morbidly obese; no acute distress ENMT: external ear and nose normal, oropharynx normal Respiratory: normal respiratory effort, lungs clear to auscultation Cardiovascular: Rate/Rhythm: regular rate and regular rhythm Heart Sounds: normal S1 and normal S2; no murmur Vessels: posterior tibial pulses present and dorsalis pedis pulses present; no JVD Extremities: + edema <1+ b/l Gastrointestinal (Abdomen): normal bowel sounds, soft, nontender, no hepatosplenomegaly Musculoskeletal: left shoulder in sling; left hand strength 5/5; cap refill left hand <2 sec Psychiatric: A+Ox3, euthymic affect Results & Data Vital Signs (Past 12 Hours) Vital Signs Temp Pulse Resp BP Pulse Ox 09/07/18 08:54 104/63 09/07/18 07:35 36.8 C 84 20 92/58 L 92 09/07/18 03:37 37.2 C 82 16 104/67 96 09/06/18 23:28 37.0 C 88 16 99/63 L 94 09/06/18 23:08 36.5 C 88 16 112/69 94 Laboratory Results intra-op cultures - staph aureus microcytosis on CBC (1) Infection of total joint prosthesis Encounter type: subsequent encounter Qualified Code(s): T84.50XD - Infection and inflammatory reaction due to unspecified internal joint prosthesis, sub sequent encounter
--- NOTE | 2018-09-07 14:22 | Orthopedic Progress Note ---
Date of Service September 07, 2018 Assessment & Plan (1) Infection of prosthetic shoulder joint: Overall is doing very well. He is not having any pain in the shoulder and he feels good. Infectious disease has already seen him and he Brian has a PICC line placed. He will be on 6 weeks of daptomycin and then on lifelong suppressive antibiotics. He is orthopedically stable for discharge tomorrow morning. Present on Admission?: Yes Subjective Robbi was seen and examined at bedside. Overall is doing very well. Is not having any pain in the shoulder. He was seen by physical therapy. He is already been seen by the hospitalist as well as infectious disease. He has had no acute events and has no complaints. Physical Exam Musculoskeletal: On physical examination of the left shoulder, the dressing is clean and dry. His radial median and ulnar nerves are checked and intact his wrist. His axillary nerve was not checked yet. He is wearing a sling as instructed. Results & Data Vital Signs (Past 12 Hours) Vital Signs Temp Pulse Resp BP Pulse Ox 09/07/18 13:00 37.0 C 86 20 113/72 95 09/07/18 08:54 104/63 09/07/18 07:35 36.8 C 84 20 92/58 L 92 09/07/18 03:37 37.2 C 82 16 104/67 96 Laboratory Results H & H 09/07/18 Range/Units 08:06 Hgb 8.9 L (14.0-18.0) g/dL Hct 29.8 L (42-52) % Coagulation 09/06/18 Range/Units 12:45 INR 2.1 H (0.9-1.1) Diagnostic Findings Postoperative x-rays of the left shoulder show the prosthesis to be in anatomic alignment without any evidence of fracture, dislocation, or loosening.
[2018-09-07] MEDS ORDERED: VANCOMYCIN CONSULT ACTIVE PRN (16:04)
[2018-09-07] MEDS ORDERED: VANCOMYCIN HCL 1,000 MG in SODIUM CHLORIDE 0.9% 250 ML IV SCH (16:15)
[2018-09-07] MEDS ORDERED: VANCOMYCIN HCL 2,500 MG in SODIUM CHLORIDE 0.9% 500 ML IV SCH (17:00)
[2018-09-07] MEDS ORDERED: INSULIN GLARGINE SOLOSTAR 100 UNITS/ML 3 ML PEN SC SCH (21:00)
[2018-09-07] MEDS: SENNA 8.6 MG TAB PO SCH (21:16)
[2018-09-07] MEDS ORDERED: WARFARIN SOD 6 MG TAB PO SCH (21:55)
[2018-09-08] MEDS: KETOROLAC TROMETHAMINE 15 MG/ML VIAL IV SCH ×2 (01:13→07:58)
[2018-09-08] MEDS ORDERED: VANCOMYCIN HCL 1,750 MG in SODIUM CHLORIDE 0.9% 500 ML IV SCH (04:00)
[2018-09-08] MEDS: ACETAMINOPHEN 500 MG TAB PO SCH (05:39)
[2018-09-08 06:36] LABS: Basophils # (auto) 0.04 K/uL (0-0.2); Basophils % (auto) 0.5 %; Eosinophils # (auto) 0.39 K/uL (0-0.5); Eosinophils % (auto) 5.1 %; Hematocrit (blood only) 28.1 % (42-52); Hemoglobin 8.3 g/dL (14.0-18.0); Immature Granulocytes % (auto) 1.3 %; Lymphocytes # (auto) 1.22 K/uL (1.2-3.4); Mean Corpuscular Hgb Conc 29.5 g/dL (32-36); Mean Corpuscular Volume 74.5 fL (80-100); Mean Platelet Volume 9.4 fL (7.4-10.4); Monocytes % (auto) 11.8 %; Neutrophils # (auto) 4.98 K/uL (1.4-6.5); Neutrophils % (auto) 65.3 %; Platelet Count 223 K/uL (130-400); RDW Coefficient of Variation 16.6 % (11.5-14.5); RDW Standard Deviation 45.5 fL (36.4-46.3); Red Blood Count 3.77 M/uL (4.7-6.1); White Blood Count 7.63 K/uL (4.8-10.8)
[2018-09-08 06:41] LABS: INR 1.7 (0.9-1.1); Prothrombin Time 16.5 Seconds (9.0-12.0)
[2018-09-08 07:16] LABS: BUN Creatinine Ratio 15.5 (10-20); Calcium 8.3 mg/dl (8.5-10.1); Creatinine Clr Calc Pharmacy 135.6 ml/min; Est GFR (African American) 114.8; Potassium 3.8 mmol/L (3.5-5.1)
[2018-09-08 07:21] LABS: Ferritin 97.4 ng/ml (8-388)
[2018-09-08 07:29] LABS: Microcytosis Present; Tear Drop Cells 1+
--- NOTE | 2018-09-08 07:59 | Orthopedic Progress Note ---
Date of Service September 08, 2018 Assessment & Plan (1) Infection of prosthetic shoulder joint: Overall he is doing about as well as expected. He is not having much pain in the shoulder. He would like to go home today. We need to get the final IV antibiotics set up for him to take at home. The drain can be removed this morning. He will be in a sling for total of 3 weeks. He wants to do his own home physical therapy and I think that is reasonable. He can be discharged home later this morning if okay with the medicine team. They are currently working up his low iron levels. Present on Admission?: Yes Subjective Robbi was seen and examined at bedside this morning. Overall he is feeling very good. Is not have any more shoulder pain. He would like to go home today if possible. His daptomycin was switched to vancomycin for insurance reasons. So far he has tolerated 2 doses of the vancomycin well. Physical Exam Musculoskeletal: On physical examination of the left shoulder, the dressing is clean and dry. The Hemovac is in place and should be pulled today. His radial, median, and ulnar nerves are checked and intact his wrist. His axillary nerve is not checked yet. Results & Data Vital Signs (Past 12 Hours) Vital Signs Temp Pulse Resp BP Pulse Ox 09/08/18 07:35 36.8 C 89 16 143/89 H 93 09/07/18 22:53 37.0 C 86 16 124/72 98 Laboratory Results H & H 09/07/18 09/08/18 Range/Units 08:06 06:15 Hgb 8.9 L 8.3 L (14.0-18.0) g/dL Hct 29.8 L 28.1 L (42-52) % Coagulation 09/06/18 09/08/18 Range/Units 12:45 06:15 INR 2.1 H 1.7 H (0.9-1.1) Microbiology 09/06/18 15:25 Gram Stain - Final Shoulder,Left Aerobic and Anaerobic Culture - Preliminary Staphylococcus aureus 09/06/18 15:27 Gram Stain - Final Shoulder,Left Aerobic and Anaerobic Culture - Preliminary Staphylococcus aureus
[2018-09-08] MEDS: VITAMIN B COMPLEX TAB PO SCH (08:06)
[2018-09-08] MEDS: hydroCHLOROthiazide 25 MG TAB PO SCH (08:06)
[2018-09-08] MEDS: MULTIVITAMIN TAB PO SCH (08:06)
[2018-09-08] MEDS: PANTOprazole 40 MG TAB PO SCH (08:06)
[2018-09-08] MEDS: AMLODIPINE BESYLATE 5 MG TAB PO SCH (08:06)
[2018-09-08] MEDS: DOCUSATE SODIUM 100 MG CAP PO SCH (08:07)
[2018-09-08] MEDS: IRBESARTAN 150 MG TAB PO SCH (08:07)
[2018-09-08] MEDS: TIMOLOL MALEATE 0.5% OP SOLN 5 ML BTL OPL SCH (08:08)
[2018-09-08] MEDS ORDERED: INSULIN GLARGINE SOLOSTAR 100 UNITS/ML 3 ML PEN SC SCH (09:00)
[2018-09-08] MEDS: INSULIN ASPART 100 UNITS/ML 3 ML PEN SC SCH ×2 (09:57→13:49)
[2018-09-08] MEDS ORDERED: DAPTOmycin 500 MG VIAL IV SCH (11:00)
[2018-09-08] MEDS: rifAMPin 600 MG in DEXTROSE 5% 500 ML IV SCH ×2 (11:04→11:18)
[2018-09-08 12:36] LABS: Hemoglobin 8.5 g/dL (14.0-18.0)
[2018-09-08] MEDS ORDERED: DAPTOmycin 575 MG in SYRINGE 0 ML IV SCH (13:00)
[2018-09-08 13:19] LABS: Folate (Folic Acid) 17.64 ng/ml (>5.38)
[2018-09-08] MEDS ORDERED: VANCOMYCIN HCL 2,000 MG in SODIUM CHLORIDE 0.9% 500 ML IV SCH (14:00)
--- NOTE | 2018-09-08 20:27 | Hospitalist Progress Note ---
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 Cultures with MRSA. IV daptomycin x 6 weeks - insurance HAS approved. Will need weekly cbc, cmp, sed rate, crp while on daptomycin. RUE PICC in place. f/u with Dr Bach in ID clinic 1-2 weeks. (2) Paroxysmal atrial fibrillation: coumadin resumed last evening. today's INR 1.7. resume normal coumadin dosing upon return home. INR THIS MONDAY; results to PCP. continue bisoprolol. (3) Acute blood loss anemia: repeat H/H this afternoon stable. acute blood loss 2nd to left shoulder surgery. iron studies c/w iron deficiency - supplement 325mg BID x 3 months minimum. will need repeat cbc next week for stability. (4) Hypertension: resume home meds (5) Sleep apnea: cont CPAP HS (6) Diabetes: controlled resume normal regimen at home (7) Iron deficiency anemia: Ferrous sulfate 325mg BID x 3 months minimum. b12/folate wnl. iron def due to blood loss from multiple surgeries. cannot rule out occult GI blood loss but less likely. I asked patient to f/u with PCP for his low Fe. From medical standpoint can d/c home today. Subjective patient feeling well. shoulder pain improved. passing flatus; no stool yet. no chest pain. no dyspnea. eating well. ambulating. no nausea or emesis. Review of Systems Constitutional: no fever, no chills, no fatigue and no anorexia Respiratory: no cough and no dyspnea Cardiovascular: + edema (chronic); no orthopnea and no paroxysmal nocturnal dyspnea Gastrointestinal: + constipation; no abdominal pain, no nausea and no vomiting Physical Exam Constitutional: well developed, well nourished and + morbidly obese; no acute distress ENMT: external ear and nose normal, oropharynx normal Respiratory: normal respiratory effort, lungs clear to auscultation Cardiovascular: Rate/Rhythm: regular rate and regular rhythm Heart Sounds: normal S1 and normal S2; no murmur Vessels: posterior tibial pulses present and dorsalis pedis pulses present; no JVD Extremities: + edema (<1+ b/l) Gastrointestinal (Abdomen): normal bowel sounds, soft, nontender, no hepa tosplenomegaly Musculoskeletal: left shoulder dressings in place; sling in place; some swelling Skin: mild pallor RUE PICC clean Psychiatric: A+Ox3, euthymic affect Results & Data Vital Signs (Past 12 Hours) Vital Signs Temp Pulse Pulse Pulse Resp BP Pulse Ox 09/08/18 13:58 36.8 C 80 89 87 16 143/89 H 93 (1) Infection of total joint prosthesis Encounter type: subsequent encounter Qualified Code(s): T84.50XD - Infection and inflammatory reaction due to unspecified internal joint prosthesis, subsequent encounter (2) Hypertension Hypertension type: essential hypertension Qualified Code(s): I10 - Essential (primary) hypertension (3) Sleep apnea Sleep apnea type: obstructive Qualified Code(s): G47.33 - Obstructive sleep apnea (adult) (pediatric) (4) Diabetes Diabetes mellitus type: type 2 Diabetes mellitus fdc insulin use: without fdc use Diabetes mellitus complication status: without complication Qualified Code(s): E11.9 - Type 2 diabetes mellitus without complications (5) Iron deficiency anemia Iron deficiency anemia type: unspecified iron deficiency Qualified Code(s): D50.9 - Iron deficiency anemia, unspecified
--- NOTE | 2018-09-09 09:28 | Discharge Summary ---
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 He then developed advanced arthritis of his shoulder. He underwent a left total shoulder arthroplasty in 2015. Initially he did well but unfortunately his left shoulder dislocated anteriorly again. He then underwent a revision of the left total shoulder arthroplasty to a reverse shoulder arthroplasty in March 2018. He initially did well postoperatively he had very little pain in the shoulder and was making progress at physical therapy. His wound fully healed but then 3 weeks after the procedure he noticed some erythema and redness anteriorly. He underwent an irrigation and debridement with modular component exchange of the left shoulder. He was on IV antibiotics for 6 weeks and then placed on oral antibiotics. He stopped the oral antibiotics about 3 weeks ago. I saw him in the office in July 2018 and he was doing great with his shoulder. He had just stop the antibiotics and was having no pain no complaints. Unfortunately 2 days ago he went to the emergency room in his hometown and there was increased redness and puffiness of the anterior aspect of his left shoulder. It appears to be mostly anterior. It is either an anterior abscess or deep infection of the shoulder. Sed rate CRP white blood cell count were all elevated. He elected to proceed with an open I&D of the left shoulder with possible component exchange. We discussed removing all components in place and cement spacer but he did not want to go through with that. He would rather a washout and lifelong antibiotics if possible. Given the current literature I thought that that was reasonable. We will proceed with an I&D of the shoulder possible modular component exchange versus possible one stage revision. He is currently on Coumadin and he stopped his Coumadin 72 hours before the procedure. His initial INR was 2.6. His PTT levels were low. Hemostasis will be controlled throughout the procedure. Given is medical history, and the fact that the Coumadin had been stopped for 72 hours before the procedure, I do not think that vitamin K will be necessary. He is also a diabetic and he has been informed that he has to take better control of his sugars. His most recent A1c was 7.4. Specialty Data Orthopedic H & H 09/07/18 09/08/18 09/08/18 Range/Units 08:06 06:15 12:18 Hgb 8.9 L 8.3 L 8.5 L (14.0-18.0) g/dL Hct 29.8 L 28.1 L 28.0 L (42-52) % Coagulation 09/06/18 09/08/18 Range/Units 12:45 06:15 INR 2.1 H 1.7 H (0.9-1.1) Microbiology 09/06/18 15:27 Shoulder,Left Gram Stain - Final 09/06/18 15:27 Shoulder,Left Aerobic and Anaerobic Culture - Preliminary Staph aureus MRSA 09/06/18 15:25 Shoulder,Left Gram Stain - Final 09/06/18 15:25 Shoulder,Left Aerobic and Anaerobic Culture - Preliminary Staph aureus MRSA Discharge Data Consultations 09/06/18 19:43 Consult Case Management - Discharge Planning Routine Consult Hospitalist Routine Consult Infectious Diseases Routine Procedures Performed Operation Date: 09/06/18 07:00 Actual Procedures p Left Shoulder Incision and Drainage (Left) - Neal Reinoso DO s Left Revision Reverse Shoulder Replacement(Left) - Neal Reinoso DO s with removal of hardware(Left) - Neal Reinoso DO Hospital Course (1) Osteoarthritis of left shoulder region: On Sep 06 2018 Robbi arrived at [facility] and underwent a stage I revision of an infected left reverse shoulder arthroplasty. Posto peratively he was started on IV rifampin and daptomycin and discharged to general orthopedic floors. The hospitalist was consulted as well as infectious disease. On postop day #1 he was doing much better. His H&H was relatively stable. His numbers were a little low from the multiple surgeries had on the shoulder. He was seen by physical therapy and able to participate well. Initial cultures came back positive for staph. Given his history of MRSA a PICC line was placed. The rifampin was discontinued and he was continued on the daptomycin. On postop day #2 he continued to do well. Unfortunately there were some insurance complications with the daptomycin and he was switched to vancomycin while in the hospital. He was given Benadryl and monitored closely because of his allergy. He did tolerate the vancomycin okay. Fortunately, his insurance was able to cover the daptomycin. He was then discharged home on IV daptomycin through the PICC line for 6 weeks. He will follow-up with infectious disease in 1 to 2 weeks. The hospitalist also started him on some iron supplementation. He will follow-up with orthopedics in 2 weeks. Discharge Instructions Home Medications Medication Instructions Recorded Confirmed Invokana 100 mg PO QAM 02/28/18 09/06/18 Januvia 50 mg PO QAM 02/28/18 09/06/18 amlodipine 5 mg PO QAM 02/28/18 09/06/18 bisoprolol fumarate 0.5 tab PO BID 02/28/18 09/06/18 celecoxib 200 mg PO BID 02/28/18 09/06/18 metformin 2 tab PO BID 02/28/18 09/06/18 multivitamin [Multiple Vitamins] 1 tab PO QPM 02/28/18 09/06/18 omega [id number] oil [Fish Oil] 1 cap PO DAILY 02/28/18 09/06/18 omeprazole 20 mg PO QAM 02/28/18 09/06/18 potassium gluconate 595 mg PO QAM 02/28/18 09/06/18 timolol 1 drp OPL BID 02/28/18 09/06/18 Durezol 1 drp OPL TID 09/05/18 09/06/18 irbesartan-hydrochlorothiazide 1 tab PO QAM 09/05/18 09/06/18 vitamin B complex 1 tab PO DAILY 09/05/18 09/06/18 warfarin 2 mg PO HS 09/05/18 09/06/18 warfarin 6 mg PO HS 09/05/18 09/06/18 Previous Rx's Medication Instructions Recorded daptomycin 550 mg IV DAILY 42 Days #42 ea 09/08/18 ferrous sulfate 325 mg PO BID #60 tab 09/08/18 oxycodone 5 - 10 mg PO Q4H PRN #40 tab 09/08/18
[2018-09-09] MEDS ORDERED: VANCOMYCIN TROUGH ONE (09:30)
== END 2018-09-08 14:40 | disposition home health service (06) | DRG 483 ==
LOC: ASU 12:14 → 3N 18:02